=== PATIENT | male | born 1990 | race Caucasian/White ===

== ENCOUNTER 2016-07-31 19:00 | Emergency (ER) | payer OTHER ==
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
[2016-07-31 20:14] LABS: Hematocrit 44 % (42-52); Hemoglobin 14.6 g/dl (14.0-18.0); Mean Corpuscular HGB Conc 34 g/dl (31-36); Mean Corpuscular Hemoglobin 31 pg (27-31); Mean Corpuscular Volume 91 fL (80-94); Mean Platelet Volume 10 um3 (7.4-10.4); Red Cell Distribution Width 13 % (10.5-15); White Blood Count 16.5 10^3/ul (3.5-10.8)
[2016-07-31 20:29] LABS: ALT 12 U/L (7-52); AST 15 U/L (13-39); Albumin 4.7 g/dL (3.2-5.2); Alkaline Phosphatase 57 U/L (34-104); Anion Gap 5 mmol/L (2-11); BUN/Creatinine Ratio 13.1 (8-20); Blood Urea Nitrogen 11 mg/dL (6-24); CO2 Carbon Dioxide 30 mmol/L (22-32); Calcium 9.6 mg/dL (8.6-10.3); Chloride 102 mmol/L (101-111); EGFR African American 139.9 (>60); EGFR Non-African American 108.8 (>60); Globulin 2.8 g/dL (2-4); Glucose 123 mg/dL (70-100); Potassium 3.7 mmol/L (3.5-5.0); Sodium 137 mmol/L (133-145); Total Protein 7.5 g/dL (6.4-8.9)
[2016-07-31 20:31] LABS: Urine Bilirubin Negative (Negative); Urine Glucose Negative (Negative); Urine Nitrite Negative (Negative)
[2016-07-31 20:45] LABS: Benzodiazepine Urine Screen None Detected (None Detect)
[2016-07-31 20:45] LABS: Acetaminophen < 15 mcg/mL; Salicylate < 2.50 mg/dL (<30)
[2016-07-31 20:54] LABS: TSH (Thyroid Stimulating Horm) 1.42 mcIU/mL (0.34-5.60)
[2016-07-31 22:05] VITALS: BP 127/65
== END 2016-08-01 01:04 | disposition home or self-care (01) ==
LOC: ED 19:00
DX: F19.10 Other psychoactive substance abuse, uncomplicated (principal); F17.210 Nicotine dependence, cigarettes, uncomplicated
CPT/HCPCS: 36415; 80053; 80307; 80329; 81003; 84443; 85027; 99284; G0480

== ENCOUNTER → 2018-02-23 12:23 | Emergency (ER) | payer MEDICAID, OTHER ==
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
[2018-02-23 14:58] VITALS: BP 116/62
== END | disposition home or self-care (01) ==
LOC: ED 12:23
DX: T40.1X1A Poisoning by heroin, accidental (unintentional), initial encounter (principal); Y92.9 Unspecified place or not applicable; Z88.3 Allergy status to other anti-infective agents; F17.210 Nicotine dependence, cigarettes, uncomplicated

== ENCOUNTER 2022-11-04 00:27 | Inpatient (IN) ==
[2022-11-04 01:37] LABS: Hematocrit 36.7 % (38-53); Hemoglobin 12.6 g/dL (13.2-16.3); Mean Corpuscular Hemoglobin 29.6 pg (27-33); Mean Corpuscular Hgb Conc 34.3 g/dL (31-36); Mean Corpuscular Volume 86.2 fL (80-97); Mean Platelet Volume 8.5 fL (7.5-11.2); Platelet Count 636 10^3/uL (150-450); Red Blood Count 4.26 10^6/uL (4.06-5.63); Red Cell Distribution Width 14.4 % (12-17); White Blood Count 33.8 10^3/uL (3.6-10.2)
[2022-11-04 02:25] LABS: Albumin 3.5 g/dL (3.2-5.2); C Reactive Protein 312.36 mg/L (<8.01); Calcium 9.2 mg/dL (8.6-10.3); Creatinine, Serum 0.54 mg/dL (0.67-1.17); Globulin 3.4 g/dL (2-4); Potassium 4.5 mmol/L (3.5-5.0); Total Bilirubin 1.4 mg/dL (0.2-1.0); Total Protein 6.9 g/dL (6.4-8.9); eGFR CKD-EPI 134.1 (>60)
[2022-11-04 02:28] LABS: HIV 4th Generation Nonreactive (Nonreactive)
[2022-11-04 02:41] LABS: Microcytosis 2+; RBC Morphology Normal (Normal)
[2022-11-04 02:43] LABS: Dohle Bodies Present
[2022-11-04 02:45] LABS: ABS Basophils 0.1 10^3/uL (0.0-0.1); ABS Lymphocytes 0.5 10^3/uL (1.0-4.8); ABS Monocytes 3.1 10^3/uL (0.0-1.1); ABS Neutrophils 30.1 10^3/uL (1.5-7.6); ABS Nucleated RBC 0.02 10^3/ul; Erythrocyte Sed Rate 58 mm/Hr (0-14); Lymphocyte % 1.6 %; Nucleated Red Blood Cells % 0.1 /100 WBC (0.0-0.4)
[2022-11-04] MEDS ORDERED: Morphine 4 MG/ML VIAL (1 ml) IV ONE (03:21)
[2022-11-04] MEDS ORDERED: Piperacillin/Tazobac ADVAN 3.375 GM in NS 0.9% 100 ml BAG 100 ML IV ONE (03:21)
[2022-11-04] MEDS ORDERED: Vancomycin 1,500 MG in NS 0.9% 250 ml 250 ML IVPB ONE (03:21)
[2022-11-04] MEDS ORDERED: Piperacillin/Tazobac 3.375 GM BAG ONE (03:33)
[2022-11-04] MEDS ORDERED: Ondansetron 4 mg VIAL 2 MG/ML 2 ml VIAL IV ONE (04:04)
[2022-11-04 04:14] LABS: Body Fluid Appearance Cloudy; Body Fluid Color Yellow; Body Fluid Source Synovial Fluid
[2022-11-04 04:54] LABS: Body Fluid WBC 53476 /mcL
[2022-11-04] MEDS ORDERED: Vancomycin per Pharmacy 1 EA NOTE FOLLOW UP SCH (05:00)
[2022-11-04 05:36] LABS: Body Fluid Mono 2 %; Body Fluid Total Cells Counted 200
[2022-11-04 05:38] LABS: Direct Bilirubin 0.5 mg/dL (0.03-0.18)
[2022-11-04] MEDS ORDERED: Zosyn per Pharmacy NOTE FOLLOW UP SCH (06:00)
[2022-11-04] MEDS ORDERED: Lactated Ringers 1000 ml BAG 1,000 ML IV SCH (06:00)
[2022-11-04 07:13] LABS: Hematocrit 36.6 % (38-53); Hemoglobin 12.2 g/dL (13.2-16.3); Mean Corpuscular Hemoglobin 29.4 pg (27-33); Mean Corpuscular Hgb Conc 33.4 g/dL (31-36); Mean Corpuscular Volume 88.1 fL (80-97); Mean Platelet Volume 8.5 fL (7.5-11.2); Platelet Count 617 10^3/uL (150-450); Red Blood Count 4.15 10^6/uL (4.06-5.63); Red Cell Distribution Width 13.7 % (12-17); White Blood Count 33.4 10^3/uL (3.6-10.2)
[2022-11-04 07:22] LABS: INR 1.7 (0.88-1.18)
[2022-11-04 07:43] LABS: ABS Basophils 0.1 10^3/uL (0.0-0.1); ABS Lymphocytes 1.3 10^3/uL (1.0-4.8); Lymphocyte % 3.8 %
[2022-11-04 07:55] LABS: Albumin 2.9 g/dL (3.2-5.2); Albumin/Globulin Ratio 0.9 (1-3); Calcium 8.7 mg/dL (8.6-10.3); Creatinine, Serum 0.62 mg/dL (0.67-1.17); Globulin 3.2 g/dL (2-4); Magnesium 2.1 mg/dL (1.9-2.7); Potassium 4.7 mmol/L (3.5-5.0); Total Bilirubin 1.5 mg/dL (0.2-1.0); Total Protein 6.1 g/dL (6.4-8.9); eGFR CKD-EPI 128.6 (>60)
[2022-11-04] MEDS ORDERED: ZOSYN 3.375 GM Q8H per EXTENDED INFUSION IV SCH (08:00)
[2022-11-04] MEDS ORDERED: Cefepime 2 GM in Dextrose 2 GM/50 ML BAG IV SCH (09:00)
[2022-11-04] MEDS ORDERED: Acetaminophen IV 1 GM/100ML 1,000 MG/100 ML BAG IV PRN (11:00)
[2022-11-04] MEDS ORDERED: Vancomycin 1,250 MG in NS 0.9% 250 ml 250 ML IVPB SCH (14:00)
[2022-11-04] MEDS ORDERED: Senna TAB 8.6 mg TAB PO PRN (14:05)
[2022-11-04] MEDS ORDERED: Magnesium Hydroxide LIQ 30 ML UDC PO PRN (14:05)
[2022-11-04] MEDS ORDERED: Bupivacaine 0.5% 50 ML MDV VIAL ONE (14:47)
[2022-11-04] MEDS ORDERED: Lidocaine 2% PF 5 ML VIAL ONE (15:02)
[2022-11-04] MEDS ORDERED: Propofol 10 MG/ML 20 ML BTL ONE ×2 (15:02→15:05)
[2022-11-04] MEDS ORDERED: Midazolam 5 mg/5 ml VIAL 1 mg/ml 5 ml VIAL (5 mg) ONE (15:04)
[2022-11-04] MEDS ORDERED: Ketamine HCL 50 mg/ml 10 ml VIAL (500 MG) ONE (15:42)
[2022-11-04] MEDS ORDERED: fentaNYL 100 mcg/2 ml 50 MCG/ML VIAL ONE (16:02)
[2022-11-04 16:52] LABS: Hepatitis B Surface Antigen Nonreactive (Nonreactive)
[2022-11-04 16:57] LABS: Hepatitis A Ab IgM Negative (Negative); Hepatitis B Core IgM Nonreactive (Nonreactive)
[2022-11-04] MEDS ORDERED: HYDROmorphone 1 MG/1 ML SYRINGE IV PRN (16:57)
[2022-11-04] MEDS ORDERED: Naloxone 0.4 mg VIAL 0.4 mg/ml 1 ml VIAL IV PRN (16:57)
[2022-11-04] MEDS ORDERED: Ondansetron 4 mg VIAL 2 MG/ML 2 ml VIAL IV PRN (16:57)
[2022-11-04] MEDS ORDERED: fentaNYL 100 mcg/2 ml 50 MCG/ML VIAL IV PRN (16:57)
[2022-11-04 18:36] LABS: Hepatitis C Antibody Reactive (Negative)
[2022-11-04] MEDS: Nicotine GUM 4MG FRUIT FLAVOR PO PRN (22:15)
[2022-11-04] MEDS: Vancomycin 1,250 MG in NS 0.9% 250 ml 250 ML IVPB SCH ×2 (22:19)
[2022-11-05] MEDS: Vancomycin 1,250 MG in NS 0.9% 250 ml 250 ML IVPB SCH ×2 (05:11→14:27)
[2022-11-05 05:24] LABS: Hematocrit 35.3 % (38-53); Mean Corpuscular Hemoglobin 29.2 pg (27-33); Mean Corpuscular Hgb Conc 33.9 g/dL (31-36); Mean Corpuscular Volume 86.3 fL (80-97); Mean Platelet Volume 8.9 fL (7.5-11.2); Platelet Count 608 10^3/uL (150-450); Red Blood Count 4.09 10^6/uL (4.06-5.63); Red Cell Distribution Width 14.3 % (12-17); White Blood Count 38.6 10^3/uL (3.6-10.2)
[2022-11-05] MEDS ORDERED: Vancomycin Trough Check NOTE FOLLOW UP ONE (05:30)
[2022-11-05 05:59] LABS: Microcytosis 2+
[2022-11-05 06:01] LABS: ABS Basophils 0.1 10^3/uL (0.0-0.1); ABS Lymphocytes 0.5 10^3/uL (1.0-4.8); ABS Monocytes 2.1 10^3/uL (0.0-1.1); ABS Neutrophils 35.8 10^3/uL (1.5-7.6); Lymphocyte % 1.3 %
[2022-11-05 06:07] LABS: Albumin 2.8 g/dL (3.2-5.2); Albumin/Globulin Ratio 0.9 (1-3); C Reactive Protein 267.62 mg/L (<8.01); Calcium 8.5 mg/dL (8.6-10.3); Creatinine, Serum 0.6 mg/dL (0.67-1.17); Globulin 3.1 g/dL (2-4); Potassium 4.7 mmol/L (3.5-5.0); Total Bilirubin 0.9 mg/dL (0.2-1.0); Total Protein 5.9 g/dL (6.4-8.9); Vancomycin Trough 8.3 mcg/mL; eGFR CKD-EPI 129.9 (>60)
[2022-11-05] MEDS: Morphine 2 MG/ML SYRINGE IV PRN ×3 (10:10→20:21)
[2022-11-05] MEDS: Nicotine GUM 4MG FRUIT FLAVOR PO PRN ×4 (10:11→20:23)
[2022-11-05] MEDS: Aspirin EC 325 mg TAB.EC PO SCH (10:11)
[2022-11-05] MEDS: Nicotine PATCH 21 MG/24 HR PATCH TRANSDERM SCH (10:11)
[2022-11-05] MEDS: Vancomycin 1000 MG in NS 0.9% 250 ML IVPB SCH ×2 (15:21→20:25)
[2022-11-06] MEDS: Morphine 2 MG/ML SYRINGE IV PRN ×4 (01:39→19:58)
[2022-11-06] MEDS: Vancomycin 1000 MG in NS 0.9% 250 ML IVPB SCH ×4 (01:45→20:02)
[2022-11-06] MEDS ORDERED: Vancomycin Trough Check NOTE FOLLOW UP ONE (08:00)
[2022-11-06 08:17] LABS: Hematocrit 35.1 % (38-53); Mean Corpuscular Hemoglobin 29.4 pg (27-33); Mean Corpuscular Hgb Conc 34.2 g/dL (31-36); Mean Corpuscular Volume 85.9 fL (80-97); Platelet Count 674 10^3/uL (150-450); Red Blood Count 4.08 10^6/uL (4.06-5.63); Red Cell Distribution Width 14.3 % (12-17); White Blood Count 37.9 10^3/uL (3.6-10.2)
[2022-11-06 08:41] LABS: ABS Basophils 0.1 10^3/uL (0.0-0.1); ABS Lymphocytes 2.2 10^3/uL (1.0-4.8); ABS Monocytes 3.4 10^3/uL (0.0-1.1); ABS Neutrophils 32.2 10^3/uL (1.5-7.6); ABS Nucleated RBC 0.01 10^3/ul; Lymphocyte % 5.8 %; RBC Morphology Normal (Normal)
[2022-11-06 08:56] LABS: Albumin 2.6 g/dL (3.2-5.2); Albumin/Globulin Ratio 0.8 (1-3); Calcium 7.9 mg/dL (8.6-10.3); Creatinine, Serum 0.52 mg/dL (0.67-1.17); Globulin 3.1 g/dL (2-4); Potassium 4.6 mmol/L (3.5-5.0); Total Bilirubin 0.8 mg/dL (0.2-1.0); Total Protein 5.7 g/dL (6.4-8.9); eGFR CKD-EPI 135.6 (>60)
[2022-11-06] MEDS: Nicotine PATCH 21 MG/24 HR PATCH TRANSDERM SCH (09:37)
[2022-11-06] MEDS: Aspirin EC 325 mg TAB.EC PO SCH (09:37)
[2022-11-06] MEDS: Nicotine GUM 4MG FRUIT FLAVOR PO PRN ×2 (09:37→14:14)
[2022-11-06 17:02] LABS: Urine Osmo < 100 mOsm/kg (150-1150)
[2022-11-07] MEDS: Morphine 2 MG/ML SYRINGE IV PRN ×2 (02:43→06:53)
[2022-11-07] MEDS: Vancomycin 1000 MG in NS 0.9% 250 ML IVPB SCH ×2 (02:47→09:23)
[2022-11-07] MEDS: Nicotine GUM 4MG FRUIT FLAVOR PO PRN ×4 (06:59→23:59)
[2022-11-07] MEDS ORDERED: Vancomycin Trough Check NOTE FOLLOW UP ONE (08:00)
[2022-11-07 08:09] LABS: Hematocrit 34.7 % (38-53); Hemoglobin 11.9 g/dL (13.2-16.3); Mean Corpuscular Hgb Conc 34.2 g/dL (31-36); Mean Corpuscular Volume 87.7 fL (80-97); Mean Platelet Volume 8.4 fL (7.5-11.2); Platelet Count 690 10^3/uL (150-450); Red Blood Count 3.95 10^6/uL (4.06-5.63); Red Cell Distribution Width 14.2 % (12-17); White Blood Count 38.4 10^3/uL (3.6-10.2)
[2022-11-07 08:53] LABS: Albumin 2.6 g/dL (3.2-5.2); Albumin/Globulin Ratio 0.8 (1-3); Calcium 8.1 mg/dL (8.6-10.3); Creatinine, Serum 0.44 mg/dL (0.67-1.17); Globulin 3.3 g/dL (2-4); Potassium 4.6 mmol/L (3.5-5.0); Total Bilirubin 0.8 mg/dL (0.2-1.0); Total Protein 5.9 g/dL (6.4-8.9); eGFR CKD-EPI 142.7 (>60)
[2022-11-07] MEDS: Nicotine PATCH 21 MG/24 HR PATCH TRANSDERM SCH (09:20)
[2022-11-07] MEDS: Aspirin EC 325 mg TAB.EC PO SCH (09:20)
[2022-11-07] MEDS: Vancomycin 1,500 MG in NS 0.9% 250 ml 250 ML IVPB SCH ×2 (15:20→23:02)
[2022-11-07] MEDS: Senna TAB 8.6 mg TAB PO SCH (19:36)
[2022-11-08] MEDS ORDERED: Vancomycin Trough Check NOTE FOLLOW UP ONE (06:00)
[2022-11-08 06:47] LABS: Hematocrit 33.9 % (38-53); Hemoglobin 11.4 g/dL (13.2-16.3); Mean Corpuscular Hemoglobin 29.7 pg (27-33); Mean Corpuscular Hgb Conc 33.7 g/dL (31-36); Mean Corpuscular Volume 88.2 fL (80-97); Red Blood Count 3.84 10^6/uL (4.06-5.63); Red Cell Distribution Width 14.5 % (12-17); White Blood Count 36.6 10^3/uL (3.6-10.2)
[2022-11-08 06:48] LABS: Platelet Count 767 10^3/uL (150-450)
[2022-11-08] MEDS ORDERED: NS 0.9% 1000 ml BAG 1,000 ML IV ONE (07:00)
[2022-11-08 07:03] LABS: Albumin 2.8 g/dL (3.2-5.2); Albumin/Globulin Ratio 0.9 (1-3); Calcium 8.1 mg/dL (8.6-10.3); Creatinine, Serum 0.63 mg/dL (0.67-1.17); Globulin 3.2 g/dL (2-4); Potassium 4.5 mmol/L (3.5-5.0); Total Bilirubin 0.9 mg/dL (0.2-1.0); Vancomycin Trough 9.1 mcg/mL
[2022-11-08] MEDS: Vancomycin 1,500 MG in NS 0.9% 250 ml 250 ML IVPB SCH ×3 (07:22→23:07)
[2022-11-08] MEDS: Aspirin EC 325 mg TAB.EC PO SCH (08:38)
[2022-11-08] MEDS: Nicotine PATCH 21 MG/24 HR PATCH TRANSDERM SCH (08:40)
[2022-11-08] MEDS: Polyethylene Glycol 3350 17 GM PACKET PO SCH (08:42)
[2022-11-08] MEDS ORDERED: Lactated Ringers 1000 ml BAG 1,000 ML IV SCH (09:00)
[2022-11-08] MEDS ORDERED: fentaNYL 100 mcg/2 ml 50 MCG/ML VIAL ONE (12:33)
[2022-11-08] MEDS ORDERED: Midazolam 5 mg/5 ml VIAL 1 mg/ml 5 ml VIAL (5 mg) ONE (12:33)
[2022-11-08] MEDS ORDERED: Flumazenil 0.5 mg/5 ml 0.1 MG/ML 5 ml VIAL ONE (12:34)
[2022-11-08] MEDS ORDERED: Naloxone 0.4 mg VIAL 0.4 mg/ml 1 ml VIAL ONE (12:34)
[2022-11-08] MEDS ORDERED: Midazolam 10 mg/10 ml VIAL 1 mg/ml 10 ml VIAL (10 mg) IV SLOW PU ONE (13:47)
[2022-11-08] MEDS ORDERED: fentaNYL 100 mcg/2 ml 50 MCG/ML VIAL IV SLOW PU ONE (13:47)
[2022-11-08 17:31] LABS: C Reactive Protein 164.51 mg/L (<8.01)
[2022-11-08] MEDS: Senna TAB 8.6 mg TAB PO SCH (20:19)
[2022-11-08] MEDS: Nicotine GUM 4MG FRUIT FLAVOR PO PRN (23:06)
[2022-11-09] MEDS ORDERED: Vancomycin Trough Check NOTE FOLLOW UP ONE (06:00)
[2022-11-09 06:20] LABS: Hemoglobin 10.5 g/dL (13.2-16.3); Mean Corpuscular Hemoglobin 29.1 pg (27-33); Mean Corpuscular Hgb Conc 33.9 g/dL (31-36); Mean Corpuscular Volume 85.8 fL (80-97); Mean Platelet Volume 8.2 fL (7.5-11.2); Platelet Count 783 10^3/uL (150-450); Red Blood Count 3.61 10^6/uL (4.06-5.63); Red Cell Distribution Width 14.5 % (12-17); White Blood Count 39.2 10^3/uL (3.6-10.2)
[2022-11-09 06:58] LABS: Albumin 2.5 g/dL (3.2-5.2); Albumin/Globulin Ratio 0.8 (1-3); C Reactive Protein 150.5 mg/L (<8.01); Calcium 7.9 mg/dL (8.6-10.3); Creatinine, Serum 0.46 mg/dL (0.67-1.17); Globulin 3.2 g/dL (2-4); Magnesium 1.8 mg/dL (1.9-2.7); Potassium 4.8 mmol/L (3.5-5.0); Total Bilirubin 0.7 mg/dL (0.2-1.0); Total Protein 5.7 g/dL (6.4-8.9); Vancomycin Trough 8.6 mcg/mL; eGFR CKD-EPI 140.8 (>60)
[2022-11-09] MEDS ORDERED: Magnesium Sulfate 2 gm BAG 2 GM/50 ML BAG IVPB ONE (07:20)
[2022-11-09] MEDS: Aspirin EC 325 mg TAB.EC PO SCH (08:42)
[2022-11-09] MEDS: Polyethylene Glycol 3350 17 GM PACKET PO SCH (08:43)
[2022-11-09] MEDS: Nicotine GUM 4MG FRUIT FLAVOR PO PRN (08:43)
[2022-11-09] MEDS: Nicotine PATCH 21 MG/24 HR PATCH TRANSDERM SCH (08:45)
[2022-11-09] MEDS: Vancomycin 1,500 MG in NS 0.9% 250 ml 250 ML IVPB SCH ×3 (10:20→22:08)
[2022-11-09 13:41] LABS: Urine Osmo 321 mOsm/kg (150-1150)
[2022-11-09 13:51] LABS: Osmolality Serum 266 mOsm/kg (275-295)
[2022-11-09] MEDS: Senna TAB 8.6 mg TAB PO SCH (20:06)
[2022-11-10 06:10] LABS: Hematocrit 32.7 % (38-53); Hemoglobin 11.1 g/dL (13.2-16.3); Mean Corpuscular Hemoglobin 29.7 pg (27-33); Mean Corpuscular Hgb Conc 33.8 g/dL (31-36); Mean Corpuscular Volume 87.7 fL (80-97); Mean Platelet Volume 8.4 fL (7.5-11.2); Platelet Count 890 10^3/uL (150-450); Red Blood Count 3.73 10^6/uL (4.06-5.63); Red Cell Distribution Width 14.2 % (12-17); White Blood Count 38.6 10^3/uL (3.6-10.2)
[2022-11-10] MEDS: Vancomycin 1,500 MG in NS 0.9% 250 ml 250 ML IVPB SCH ×3 (06:15→22:43)
[2022-11-10 06:31] LABS: Albumin 2.7 g/dL (3.2-5.2); Albumin/Globulin Ratio 0.7 (1-3); C Reactive Protein 157.34 mg/L (<8.01); Calcium 8.3 mg/dL (8.6-10.3); Creatinine, Serum 0.51 mg/dL (0.67-1.17); Globulin 3.7 g/dL (2-4); Potassium 5.5 mmol/L (3.5-5.0); Total Bilirubin 0.8 mg/dL (0.2-1.0); Total Protein 6.4 g/dL (6.4-8.9); eGFR CKD-EPI 136.4 (>60)
[2022-11-10] MEDS: Polyethylene Glycol 3350 17 GM PACKET PO SCH (07:54)
[2022-11-10] MEDS: Nicotine PATCH 21 MG/24 HR PATCH TRANSDERM SCH (08:04)
[2022-11-10] MEDS ORDERED: Morphine 4 MG/ML VIAL (1 ml) IV ONE (09:54)
[2022-11-10] MEDS ORDERED: NS 0.9% 250 ml 250 ML IV SCH (10:00)
[2022-11-10] MEDS ORDERED: NS 0.9% 1000 ml BAG 1,000 ML IV SCH ×2 (10:00→15:16)
[2022-11-10] MEDS ORDERED: Bupivacaine 0.25% SDV 30 ML ONE (14:58)
[2022-11-10] MEDS ORDERED: Lidocaine 2% PF 5 ML VIAL ONE (15:01)
[2022-11-10] MEDS ORDERED: Midazolam 2 mg/2 ml VIAL 1 mg/ml 2 ml VIAL (2 mg) ONE (15:01)
[2022-11-10] MEDS ORDERED: Propofol 10 MG/ML 20 ML BTL ONE ×2 (15:01→17:18)
[2022-11-10] MEDS ORDERED: fentaNYL 250 mcg/5 ml 50 MCG/ML 5 ml VIAL (250 MCG) ONE (15:01)
[2022-11-10 15:08] LABS: Calcium 8.1 mg/dL (8.6-10.3); Creatinine, Serum 0.39 mg/dL (0.67-1.17); Potassium 5.2 mmol/L (3.5-5.0)
[2022-11-10] MEDS ORDERED: Naloxone 0.4 mg VIAL 0.4 mg/ml 1 ml VIAL IV PRN (16:49)
[2022-11-10] MEDS ORDERED: HYDROmorphone 0.5 MG/0.5 ML SYRINGE ONE ×3 (17:16→17:32)
[2022-11-10] MEDS ORDERED: fentaNYL 100 mcg/2 ml 50 MCG/ML VIAL ONE ×3 (17:24→18:24)
[2022-11-10] MEDS ORDERED: Acetaminophen IV 1 GM/100ML 1,000 MG/100 ML BAG IV ONE (17:27)
[2022-11-10] MEDS ORDERED: HYDROmorphone 1 MG/1 ML SYRINGE ONE (18:24)
[2022-11-10] MEDS: HYDROmorphone 1 MG/1 ML SYRINGE IV PRN ×2 (18:26→18:36)
[2022-11-10] MEDS: fentaNYL 100 mcg/2 ml 50 MCG/ML VIAL IV PRN ×2 (18:26→18:33)
[2022-11-10] MEDS: Senna TAB 8.6 mg TAB PO SCH (20:35)
[2022-11-11] MEDS ORDERED: Vancomycin Trough Check NOTE FOLLOW UP ONE (06:00)
[2022-11-11 06:09] LABS: Hematocrit 31.8 % (38-53); Hemoglobin 10.6 g/dL (13.2-16.3); Mean Corpuscular Hgb Conc 33.4 g/dL (31-36); Mean Corpuscular Volume 86.8 fL (80-97); Mean Platelet Volume 8.2 fL (7.5-11.2); Platelet Count 884 10^3/uL (150-450); Red Blood Count 3.66 10^6/uL (4.06-5.63); Red Cell Distribution Width 14.4 % (12-17); White Blood Count 43.7 10^3/uL (3.6-10.2)
[2022-11-11 06:29] LABS: Albumin 2.6 g/dL (3.2-5.2); Albumin/Globulin Ratio 0.7 (1-3); Calcium 8.1 mg/dL (8.6-10.3); Creatinine, Serum 0.44 mg/dL (0.67-1.17); Globulin 3.5 g/dL (2-4); Magnesium 1.9 mg/dL (1.9-2.7); Potassium 5.3 mmol/L (3.5-5.0); Total Bilirubin 0.6 mg/dL (0.2-1.0); Total Protein 6.1 g/dL (6.4-8.9); Vancomycin Trough 10.2 mcg/mL; eGFR CKD-EPI 142.7 (>60)
[2022-11-11] MEDS: Vancomycin 1,500 MG in NS 0.9% 250 ml 250 ML IVPB SCH ×3 (06:29→22:01)
[2022-11-11] MEDS: Nicotine PATCH 21 MG/24 HR PATCH TRANSDERM SCH (08:52)
[2022-11-11] MEDS: Polyethylene Glycol 3350 17 GM PACKET PO SCH (08:52)
[2022-11-11] MEDS: oxyCODONE SR 20 mg TAB PO SCH ×2 (10:59→22:00)
[2022-11-11] MEDS: Nicotine GUM 4MG FRUIT FLAVOR PO PRN (20:00)
[2022-11-11] MEDS: Senna TAB 8.6 mg TAB PO SCH (22:00)
[2022-11-12] MEDS: Vancomycin 1,500 MG in NS 0.9% 250 ml 250 ML IVPB SCH ×3 (06:25→22:27)
[2022-11-12] MEDS: Polyethylene Glycol 3350 17 GM PACKET PO SCH (08:39)
[2022-11-12] MEDS: Nicotine GUM 4MG FRUIT FLAVOR PO PRN ×3 (08:39→20:31)
[2022-11-12] MEDS: oxyCODONE SR 20 mg TAB PO SCH ×2 (08:41→20:30)
[2022-11-12] MEDS: Nicotine PATCH 21 MG/24 HR PATCH TRANSDERM SCH (08:42)
[2022-11-12 11:36] LABS: Hemoglobin 10.7 g/dL (13.2-16.3); Mean Corpuscular Hemoglobin 29.1 pg (27-33); Mean Corpuscular Hgb Conc 33.5 g/dL (31-36); Mean Corpuscular Volume 86.7 fL (80-97); Mean Platelet Volume 7.7 fL (7.5-11.2); Platelet Count 1040 10^3/uL (150-450); Red Cell Distribution Width 14.3 % (12-17); White Blood Count 33.4 10^3/uL (3.6-10.2)
[2022-11-12 12:05] LABS: Albumin 2.7 g/dL (3.2-5.2); Albumin/Globulin Ratio 0.8 (1-3); C Reactive Protein 82.6 mg/L (<8.01); Calcium 8.6 mg/dL (8.6-10.3); Creatinine, Serum 0.47 mg/dL (0.67-1.17); Globulin 3.6 g/dL (2-4); Magnesium 1.7 mg/dL (1.9-2.7); Potassium 5.1 mmol/L (3.5-5.0); Total Bilirubin 0.6 mg/dL (0.2-1.0); Total Protein 6.3 g/dL (6.4-8.9); eGFR CKD-EPI 139.8 (>60)
[2022-11-12] MEDS ORDERED: Magnesium Sulfate 2 gm BAG 2 GM/50 ML BAG IVPB ONE (12:42)
[2022-11-12] MEDS: Senna TAB 8.6 mg TAB PO SCH (20:31)
[2022-11-13] MEDS: Nicotine GUM 4MG FRUIT FLAVOR PO PRN ×2 (05:05→21:27)
[2022-11-13] MEDS ORDERED: Vancomycin Trough Check NOTE FOLLOW UP ONE (06:00)
[2022-11-13 07:39] LABS: Hematocrit 31.9 % (38-53); Hemoglobin 10.6 g/dL (13.2-16.3); Mean Corpuscular Hemoglobin 29.1 pg (27-33); Mean Corpuscular Hgb Conc 33.2 g/dL (31-36); Mean Corpuscular Volume 87.6 fL (80-97); Platelet Count 1094 10^3/uL (150-450); Red Blood Count 3.64 10^6/uL (4.06-5.63); Red Cell Distribution Width 14.2 % (12-17)
[2022-11-13 07:50] LABS: Albumin 2.8 g/dL (3.2-5.2); Albumin/Globulin Ratio 0.8 (1-3); C Reactive Protein 82.7 mg/L (<8.01); Calcium 8.4 mg/dL (8.6-10.3); Creatinine, Serum 0.52 mg/dL (0.67-1.17); Globulin 3.7 g/dL (2-4); Magnesium 1.9 mg/dL (1.9-2.7); Potassium 5.3 mmol/L (3.5-5.0); Total Bilirubin 0.7 mg/dL (0.2-1.0); Total Protein 6.5 g/dL (6.4-8.9); Vancomycin Trough 9.3 mcg/mL; eGFR CKD-EPI 135.6 (>60)
[2022-11-13] MEDS: Vancomycin 1,500 MG in NS 0.9% 250 ml 250 ML IVPB SCH ×3 (08:04→21:27)
[2022-11-13] MEDS: oxyCODONE SR 20 mg TAB PO SCH (08:07)
[2022-11-13] MEDS: Nicotine PATCH 21 MG/24 HR PATCH TRANSDERM SCH (08:08)
[2022-11-13] MEDS: Polyethylene Glycol 3350 17 GM PACKET PO SCH (08:08)
[2022-11-13] MEDS ORDERED: Magnesium Sulfate IV 1GM/100ML 1 GM/100 ML BAG IV ONE (08:15)
[2022-11-13] MEDS ORDERED: oxyCODONE SR 10 mg TAB PO ONE (09:00)
[2022-11-13] MEDS: Senna TAB 8.6 mg TAB PO SCH (19:58)
[2022-11-13] MEDS: oxyCODONE SR 15 mg TAB PO SCH (19:59)
[2022-11-14] MEDS: Vancomycin 1,500 MG in NS 0.9% 250 ml 250 ML IVPB SCH ×3 (05:05→23:01)
[2022-11-14] MEDS: oxyCODONE SR 15 mg TAB PO SCH ×2 (07:00→19:26)
[2022-11-14] MEDS: Polyethylene Glycol 3350 17 GM PACKET PO SCH (07:00)
[2022-11-14] MEDS: Nicotine PATCH 21 MG/24 HR PATCH TRANSDERM SCH (07:01)
[2022-11-14] MEDS: Nicotine GUM 4MG FRUIT FLAVOR PO PRN ×2 (12:07→19:29)
[2022-11-14] MEDS: Senna TAB 8.6 mg TAB PO SCH (19:26)
[2022-11-15] MEDS: Vancomycin 1,500 MG in NS 0.9% 250 ml 250 ML IVPB SCH ×3 (06:06→22:52)
[2022-11-15] MEDS: oxyCODONE SR 15 mg TAB PO SCH ×2 (08:40→20:45)
[2022-11-15] MEDS: Polyethylene Glycol 3350 17 GM PACKET PO SCH (08:41)
[2022-11-15] MEDS: Nicotine PATCH 21 MG/24 HR PATCH TRANSDERM SCH (08:41)
[2022-11-15] MEDS: Nicotine GUM 4MG FRUIT FLAVOR PO PRN ×2 (10:38→19:43)
[2022-11-15] MEDS ORDERED: Naloxone Nasal Spray 4 MG/0.1 ML NASAL.SPR INTRANASAL PRN (15:39)
[2022-11-15] MEDS ORDERED: Enoxaparin 40 MG/0.4 ML SYR SUBCUT SCH (16:00)
[2022-11-15] MEDS ORDERED: Lidocaine 1% MPF 5 ML VIAL INJ ONE (16:10)
[2022-11-15] MEDS: Senna TAB 8.6 mg TAB PO SCH (20:45)
[2022-11-15] MEDS: Enoxaparin 40 MG/0.4 ML SYR SUBCUT SCH (20:46)
[2022-11-16] MEDS: Nicotine GUM 4MG FRUIT FLAVOR PO PRN ×6 (03:24→22:31)
[2022-11-16 06:21] LABS: Hematocrit 28.8 % (38-53); Hemoglobin 9.6 g/dL (13.2-16.3); Mean Corpuscular Hemoglobin 29.5 pg (27-33); Mean Corpuscular Hgb Conc 33.3 g/dL (31-36); Mean Corpuscular Volume 88.7 fL (80-97); Platelet Count 1075 10^3/uL (150-450); Red Blood Count 3.25 10^6/uL (4.06-5.63); Red Cell Distribution Width 14.3 % (12-17); White Blood Count 27.5 10^3/uL (3.6-10.2)
[2022-11-16] MEDS: Vancomycin 1,500 MG in NS 0.9% 250 ml 250 ML IVPB SCH ×3 (06:36→22:23)
[2022-11-16 06:50] LABS: Albumin 2.9 g/dL (3.2-5.2); Albumin/Globulin Ratio 0.8 (1-3); C Reactive Protein 101.74 mg/L (<8.01); Calcium 8.8 mg/dL (8.6-10.3); Creatinine, Serum 0.65 mg/dL (0.67-1.17); Globulin 3.5 g/dL (2-4); Magnesium 1.8 mg/dL (1.9-2.7); Potassium 4.7 mmol/L (3.5-5.0); Total Bilirubin 0.7 mg/dL (0.2-1.0); Total Protein 6.4 g/dL (6.4-8.9); eGFR CKD-EPI 126.8 (>60)
[2022-11-16] MEDS ORDERED: Magnesium Sulfate 2 gm BAG 2 GM/50 ML BAG IVPB ONE (07:13)
[2022-11-16] MEDS: Nicotine PATCH 21 MG/24 HR PATCH TRANSDERM SCH (09:02)
[2022-11-16] MEDS: Polyethylene Glycol 3350 17 GM PACKET PO SCH (09:23)
[2022-11-16] MEDS: Morphine ER 30 mg TAB ** extended release PO SCH ×2 (10:48→21:40)
[2022-11-16] MEDS: Morphine ER 15 mg TAB ** extended release PO SCH ×2 (10:49→21:41)
[2022-11-16] MEDS: Senna TAB 8.6 mg TAB PO SCH (21:41)
[2022-11-16] MEDS: Enoxaparin 40 MG/0.4 ML SYR SUBCUT SCH (21:48)
[2022-11-17] MEDS ORDERED: Vancomycin Trough Check NOTE FOLLOW UP ONE (06:00)
[2022-11-17] MEDS: Vancomycin 1,500 MG in NS 0.9% 250 ml 250 ML IVPB SCH (06:11)
[2022-11-17 08:23] LABS: Hematocrit 27.9 % (38-53); Hemoglobin 9.5 g/dL (13.2-16.3); Mean Corpuscular Hemoglobin 30.1 pg (27-33); Mean Corpuscular Hgb Conc 34.1 g/dL (31-36); Mean Corpuscular Volume 88.3 fL (80-97); Mean Platelet Volume 7.1 fL (7.5-11.2); Platelet Count 1030 10^3/uL (150-450); Red Blood Count 3.16 10^6/uL (4.06-5.63); Red Cell Distribution Width 14.6 % (12-17); White Blood Count 25.5 10^3/uL (3.6-10.2)
[2022-11-17] MEDS: Morphine ER 15 mg TAB ** extended release PO SCH (08:40)
[2022-11-17] MEDS: Morphine ER 30 mg TAB ** extended release PO SCH (08:41)
[2022-11-17] MEDS: Nicotine GUM 4MG FRUIT FLAVOR PO PRN ×4 (08:43→17:41)
[2022-11-17 08:46] LABS: Albumin 2.8 g/dL (3.2-5.2); Albumin/Globulin Ratio 0.8 (1-3); C Reactive Protein 127.34 mg/L (<8.01); Calcium 8.6 mg/dL (8.6-10.3); Creatinine, Serum 0.53 mg/dL (0.67-1.17); Globulin 3.6 g/dL (2-4); Magnesium 1.8 mg/dL (1.9-2.7); Potassium 4.5 mmol/L (3.5-5.0); Total Bilirubin 1.1 mg/dL (0.2-1.0); Total Protein 6.4 g/dL (6.4-8.9); Vancomycin Trough 29.9 mcg/mL; eGFR CKD-EPI 134.9 (>60)
[2022-11-17] MEDS: Nicotine PATCH 21 MG/24 HR PATCH TRANSDERM SCH (09:03)
[2022-11-17] MEDS: Polyethylene Glycol 3350 17 GM PACKET PO SCH (09:03)
[2022-11-17] MEDS ORDERED: Magnesium Sulfate 2 gm BAG 2 GM/50 ML BAG IVPB ONE (09:07)
[2022-11-17] MEDS ORDERED: Iohexol 350 (CONTRAST) 500 ML MDV IV ONE (10:52)
[2022-11-17] MEDS ORDERED: Linezolid 600 MG IVPREMIX(*) 600 MG/300 ML BAG IVPB SCH ×2 (11:00→15:00)
[2022-11-17] MEDS ORDERED: Naloxone 0.4 mg VIAL 0.4 mg/ml 1 ml VIAL IV PUSH PRN (14:51)
[2022-11-17] MEDS ORDERED: HYDROmorphone 1 MG/1 ML SYRINGE IV SLOW PU STA (14:59)
[2022-11-17] MEDS ORDERED: HYDROmorphone PCA 20 MG/20 ML PCA.SYRING PCA SCH (16:00)
[2022-11-17] MEDS ORDERED: Lidocaine 1% MPF 5 ML VIAL INJ ONE (16:02)
[2022-11-17] MEDS ORDERED: Famotidine IV 10 MG/ML 2 ml VIAL (20 mg) IV ONE (19:51)
[2022-11-17] MEDS ORDERED: Morphine 4 MG/ML VIAL (1 ml) ONE (21:04)
[2022-11-17] MEDS ORDERED: Midazolam 5 mg/5 ml VIAL 1 mg/ml 5 ml VIAL (5 mg) ONE (21:17)
[2022-11-17] MEDS ORDERED: Ketamine HCL 50 mg/ml 10 ml VIAL (500 MG) ONE (21:17)
[2022-11-17] MEDS ORDERED: fentaNYL 250 mcg/5 ml 50 MCG/ML 5 ml VIAL (250 MCG) ONE (21:17)
[2022-11-17] MEDS ORDERED: Lidocaine 2% PF 5 ML VIAL ONE (21:17)
[2022-11-17] MEDS ORDERED: Ondansetron 4 mg VIAL 2 MG/ML 2 ml VIAL ONE (21:17)
[2022-11-17] MEDS ORDERED: Propofol 10 MG/ML 20 ML BTL ONE (21:17)
[2022-11-17] MEDS: Lactated Ringers 1000 ml BAG 1,000 ML IV SCH (21:21)
[2022-11-17] MEDS ORDERED: Rocuronium 50 mg VIAL 10 mg/ml 5 ml VIAL (50 mg) ONE (21:23)
[2022-11-17] MEDS ORDERED: fentaNYL 100 mcg/2 ml 50 MCG/ML VIAL IV PRN (23:01)
[2022-11-17] MEDS ORDERED: Ondansetron 4 mg VIAL 2 MG/ML 2 ml VIAL IV PRN (23:01)
[2022-11-17] MEDS ORDERED: Naloxone 0.4 mg VIAL 0.4 mg/ml 1 ml VIAL IV PRN (23:01)
[2022-11-17] MEDS ORDERED: HYDROmorphone 1 MG/1 ML SYRINGE IV PRN (23:01)
[2022-11-17] MEDS ORDERED: ceFAZolin 1 GM in Dextrose 1 GM/50 ML BAG ONE (23:07)
[2022-11-18] MEDS ORDERED: HYDROmorphone 0.5 MG/0.5 ML SYRINGE ONE ×2 (00:17→00:23)
[2022-11-18] MEDS: Lactated Ringers 1000 ml BAG 1,000 ML IV SCH (01:57)
[2022-11-18] MEDS: Senna TAB 8.6 mg TAB PO SCH ×2 (03:11→22:41)
[2022-11-18] MEDS: Linezolid 600 MG IVPREMIX(*) 600 MG/300 ML BAG IVPB SCH ×2 (03:21→14:27)
[2022-11-18 07:28] LABS: Hematocrit 21.6 % (38-53); Hemoglobin 7.3 g/dL (13.2-16.3); Mean Corpuscular Hemoglobin 29.7 pg (27-33); Mean Corpuscular Hgb Conc 33.8 g/dL (31-36); Mean Corpuscular Volume 87.9 fL (80-97); Mean Platelet Volume 7.4 fL (7.5-11.2); Platelet Count 778 10^3/uL (150-450); Red Blood Count 2.46 10^6/uL (4.06-5.63); Red Cell Distribution Width 14.3 % (12-17); White Blood Count 32.4 10^3/uL (3.6-10.2)
[2022-11-18] MEDS: Nicotine PATCH 21 MG/24 HR PATCH TRANSDERM SCH (08:18)
[2022-11-18] MEDS: Nicotine GUM 4MG FRUIT FLAVOR PO PRN ×2 (08:19→13:54)
[2022-11-18] MEDS: Polyethylene Glycol 3350 17 GM PACKET PO SCH (08:19)
[2022-11-18] MEDS ORDERED: HYDROmorphone PCA 20 MG/20 ML PCA.SYRING PCA SCH (08:31)
[2022-11-18 08:48] LABS: C Reactive Protein 126.52 mg/L (<8.01); Calcium 8.3 mg/dL (8.6-10.3); Creatinine, Serum 0.52 mg/dL (0.67-1.17); Magnesium 1.8 mg/dL (1.9-2.7); Potassium 4.7 mmol/L (3.5-5.0); eGFR CKD-EPI 135.6 (>60)
[2022-11-18] MEDS: Enoxaparin 40 MG/0.4 ML SYR SUBCUT SCH (12:45)
[2022-11-18] MEDS: HYDROmorphone PCA 20 MG/20 ML PCA.SYRING PCA SCH (12:51)
[2022-11-19] MEDS: HYDROmorphone PCA 20 MG/20 ML PCA.SYRING PCA SCH ×2 (00:07→11:43)
[2022-11-19] MEDS: Linezolid 600 MG IVPREMIX(*) 600 MG/300 ML BAG IVPB SCH ×2 (02:20→15:02)
[2022-11-19 05:53] LABS: Hematocrit 19.4 % (38-53); Hemoglobin 6.4 g/dL (13.2-16.3); Mean Corpuscular Hemoglobin 29.4 pg (27-33); Mean Corpuscular Hgb Conc 33.2 g/dL (31-36); Mean Corpuscular Volume 88.6 fL (80-97); Mean Platelet Volume 7.4 fL (7.5-11.2); Platelet Count 759 10^3/uL (150-450); Red Blood Count 2.19 10^6/uL (4.06-5.63); Red Cell Distribution Width 14.2 % (12-17); White Blood Count 20.4 10^3/uL (3.6-10.2)
[2022-11-19 06:02] LABS: Albumin 2.5 g/dL (3.2-5.2); Albumin/Globulin Ratio 0.7 (1-3); C Reactive Protein 126.25 mg/L (<8.01); Creatinine, Serum 0.46 mg/dL (0.67-1.17); Globulin 3.5 g/dL (2-4); Magnesium 1.8 mg/dL (1.9-2.7); Potassium 3.8 mmol/L (3.5-5.0); Total Bilirubin 0.4 mg/dL (0.2-1.0); eGFR CKD-EPI 140.8 (>60)
[2022-11-19 06:29] LABS: Hematocrit 19.4 % (38-53); Hemoglobin 6.5 g/dL (13.2-16.3)
[2022-11-19] MEDS: Nicotine PATCH 21 MG/24 HR PATCH TRANSDERM SCH (09:00)
[2022-11-19] MEDS: Polyethylene Glycol 3350 17 GM PACKET PO SCH (09:31)
[2022-11-19] MEDS: Nicotine GUM 4MG FRUIT FLAVOR PO PRN (09:32)
[2022-11-19] MEDS: Morphine ER 100 mg TAB **extended release PO SCH ×2 (13:49→22:52)
[2022-11-19] MEDS: Enoxaparin 40 MG/0.4 ML SYR SUBCUT SCH (13:51)
[2022-11-19] MEDS: Morphine ORAL.SOLN 10 mg 2 mg/ml UDC 5 ml (10 mg) PO PRN (18:09)
[2022-11-19 20:40] LABS: Hematocrit 22.7 % (38-53); Hemoglobin 7.6 g/dL (13.2-16.3); Mean Corpuscular Hemoglobin 29.7 pg (27-33); Mean Corpuscular Hgb Conc 33.3 g/dL (31-36); Mean Platelet Volume 7.4 fL (7.5-11.2); Platelet Count 734 10^3/uL (150-450); Red Blood Count 2.55 10^6/uL (4.06-5.63); Red Cell Distribution Width 13.8 % (12-17); White Blood Count 25.3 10^3/uL (3.6-10.2)
[2022-11-19] MEDS: Senna TAB 8.6 mg TAB PO SCH (21:16)
[2022-11-20] MEDS: Morphine ORAL.SOLN 10 mg 2 mg/ml UDC 5 ml (10 mg) PO PRN ×3 (01:37→14:52)
[2022-11-20] MEDS: Linezolid 600 MG IVPREMIX(*) 600 MG/300 ML BAG IVPB SCH ×3 (01:38→21:26)
[2022-11-20 06:09] LABS: Hematocrit 22.3 % (38-53); Hemoglobin 7.6 g/dL (13.2-16.3); Mean Corpuscular Hemoglobin 30.2 pg (27-33); Mean Corpuscular Hgb Conc 34.1 g/dL (31-36); Mean Corpuscular Volume 88.4 fL (80-97); Mean Platelet Volume 7.7 fL (7.5-11.2); Platelet Count 723 10^3/uL (150-450); Red Blood Count 2.52 10^6/uL (4.06-5.63); Red Cell Distribution Width 14.1 % (12-17); White Blood Count 23.9 10^3/uL (3.6-10.2)
[2022-11-20 06:28] LABS: Albumin 2.7 g/dL (3.2-5.2); Albumin/Globulin Ratio 0.7 (1-3); C Reactive Protein 95.93 mg/L (<8.01); Calcium 8.3 mg/dL (8.6-10.3); Creatinine, Serum 0.45 mg/dL (0.67-1.17); Globulin 3.7 g/dL (2-4); Magnesium 1.9 mg/dL (1.9-2.7); Potassium 3.9 mmol/L (3.5-5.0); Total Bilirubin 0.4 mg/dL (0.2-1.0); Total Protein 6.4 g/dL (6.4-8.9); eGFR CKD-EPI 141.7 (>60)
[2022-11-20] MEDS: Polyethylene Glycol 3350 17 GM PACKET PO SCH (09:34)
[2022-11-20] MEDS: Nicotine PATCH 21 MG/24 HR PATCH TRANSDERM SCH (09:36)
[2022-11-20] MEDS: Morphine ER 100 mg TAB **extended release PO SCH ×2 (09:36→21:19)
[2022-11-20] MEDS: Nicotine GUM 4MG FRUIT FLAVOR PO PRN ×3 (09:41→19:40)
[2022-11-20] MEDS: Enoxaparin 40 MG/0.4 ML SYR SUBCUT SCH (12:51)
[2022-11-20] MEDS: Senna TAB 8.6 mg TAB PO SCH (21:18)
[2022-11-21] MEDS: Morphine ORAL.SOLN 10 mg 2 mg/ml UDC 5 ml (10 mg) PO PRN ×5 (01:34→22:13)
[2022-11-21 05:59] LABS: Hematocrit 23.4 % (38-53); Hemoglobin 7.9 g/dL (13.2-16.3); Mean Corpuscular Hemoglobin 29.9 pg (27-33); Mean Corpuscular Hgb Conc 33.6 g/dL (31-36); Mean Corpuscular Volume 89.1 fL (80-97); Mean Platelet Volume 7.6 fL (7.5-11.2); Platelet Count 805 10^3/uL (150-450); Red Blood Count 2.63 10^6/uL (4.06-5.63); Red Cell Distribution Width 14.6 % (12-17); White Blood Count 24.7 10^3/uL (3.6-10.2)
[2022-11-21 06:19] LABS: Albumin 2.8 g/dL (3.2-5.2); Albumin/Globulin Ratio 0.7 (1-3); C Reactive Protein 77.09 mg/L (<8.01); Calcium 8.3 mg/dL (8.6-10.3); Creatinine, Serum 0.46 mg/dL (0.67-1.17); Globulin 3.9 g/dL (2-4); Magnesium 1.7 mg/dL (1.9-2.7); Potassium 4.3 mmol/L (3.5-5.0); Total Bilirubin 0.5 mg/dL (0.2-1.0); Total Protein 6.7 g/dL (6.4-8.9); eGFR CKD-EPI 140.8 (>60)
[2022-11-21] MEDS: Nicotine PATCH 21 MG/24 HR PATCH TRANSDERM SCH (08:12)
[2022-11-21] MEDS: Morphine ER 100 mg TAB **extended release PO SCH ×2 (08:13→20:24)
[2022-11-21] MEDS: Polyethylene Glycol 3350 17 GM PACKET PO SCH (08:13)
[2022-11-21] MEDS: Linezolid 600 MG IVPREMIX(*) 600 MG/300 ML BAG IVPB SCH ×2 (09:42→22:15)
[2022-11-21] MEDS: Enoxaparin 40 MG/0.4 ML SYR SUBCUT SCH (12:18)
[2022-11-21] MEDS: Nicotine GUM 4MG FRUIT FLAVOR PO PRN ×2 (15:50→20:25)
[2022-11-21] MEDS: Senna TAB 8.6 mg TAB PO SCH (20:25)
[2022-11-22 06:16] LABS: Hematocrit 23.9 % (38-53); Mean Corpuscular Hemoglobin 29.2 pg (27-33); Mean Corpuscular Hgb Conc 33.3 g/dL (31-36); Mean Corpuscular Volume 87.8 fL (80-97); Mean Platelet Volume 7.7 fL (7.5-11.2); Platelet Count 837 10^3/uL (150-450); Red Blood Count 2.73 10^6/uL (4.06-5.63); Red Cell Distribution Width 14.5 % (12-17); White Blood Count 23.9 10^3/uL (3.6-10.2)
[2022-11-22] MEDS: Nicotine GUM 4MG FRUIT FLAVOR PO PRN ×3 (06:20→16:41)
[2022-11-22 06:37] LABS: Albumin 2.8 g/dL (3.2-5.2); Albumin/Globulin Ratio 0.7 (1-3); Calcium 8.6 mg/dL (8.6-10.3); Creatinine, Serum 0.48 mg/dL (0.67-1.17); Globulin 4.2 g/dL (2-4); Magnesium 1.9 mg/dL (1.9-2.7); Total Bilirubin 0.6 mg/dL (0.2-1.0)
[2022-11-22 07:50] LABS: C Reactive Protein 80.27 mg/L (<8.01)
[2022-11-22] MEDS: Morphine ER 100 mg TAB **extended release PO SCH ×2 (09:40→22:03)
[2022-11-22] MEDS: Linezolid 600 MG IVPREMIX(*) 600 MG/300 ML BAG IVPB SCH ×2 (09:40→22:21)
[2022-11-22] MEDS: Polyethylene Glycol 3350 17 GM PACKET PO SCH (09:40)
[2022-11-22] MEDS: Nicotine PATCH 21 MG/24 HR PATCH TRANSDERM SCH (09:40)
[2022-11-22 09:42] LABS: ABS Basophils 0.1 10^3/uL (0.0-0.1); ABS Eosinophils 0.2 10^3/uL (0.0-0.5); ABS Lymphocytes 3.1 10^3/uL (1.0-4.8); ABS Neutrophils 18.5 10^3/uL (1.5-7.6); ABS Nucleated RBC 0.05 10^3/ul; Eosinophil % 0.9 %; Nucleated Red Blood Cells % 0.2 /100 WBC (0.0-0.4)
[2022-11-22] MEDS: Enoxaparin 40 MG/0.4 ML SYR SUBCUT SCH (12:30)
[2022-11-22] MEDS: Morphine ORAL.SOLN 10 mg 2 mg/ml UDC 5 ml (10 mg) PO PRN (19:54)
[2022-11-22] MEDS: Senna TAB 8.6 mg TAB PO SCH (22:04)
[2022-11-23] MEDS: Morphine ORAL.SOLN 10 mg 2 mg/ml UDC 5 ml (10 mg) PO PRN ×2 (00:30→14:18)
[2022-11-23 05:50] LABS: Mean Corpuscular Hemoglobin 29.8 pg (27-33); Mean Corpuscular Hgb Conc 33.5 g/dL (31-36); Mean Corpuscular Volume 89.2 fL (80-97); Mean Platelet Volume 7.7 fL (7.5-11.2); Platelet Count 896 10^3/uL (150-450); Red Cell Distribution Width 14.6 % (12-17)
[2022-11-23 06:36] LABS: Albumin 2.9 g/dL (3.2-5.2); Albumin/Globulin Ratio 0.7 (1-3); C Reactive Protein 75.48 mg/L (<8.01); Calcium 8.6 mg/dL (8.6-10.3); Creatinine, Serum 0.51 mg/dL (0.67-1.17); Globulin 3.9 g/dL (2-4); Magnesium 1.9 mg/dL (1.9-2.7); Potassium 4.2 mmol/L (3.5-5.0); Total Bilirubin 0.5 mg/dL (0.2-1.0); Total Protein 6.8 g/dL (6.4-8.9); eGFR CKD-EPI 136.4 (>60)
[2022-11-23 09:00] LABS: ABS Basophils 0.1 10^3/uL (0.0-0.1); ABS Eosinophils 0.2 10^3/uL (0.0-0.5); ABS Neutrophils 17.7 10^3/uL (1.5-7.6); ABS Nucleated RBC 0.04 10^3/ul; Eosinophil % 0.9 %; Lymphocyte % 13.1 %; Nucleated Red Blood Cells % 0.2 /100 WBC (0.0-0.4); Polychromasia 2+
[2022-11-23] MEDS: Nicotine PATCH 21 MG/24 HR PATCH TRANSDERM SCH (09:29)
[2022-11-23] MEDS: Linezolid 600 MG IVPREMIX(*) 600 MG/300 ML BAG IVPB SCH (09:29)
[2022-11-23] MEDS: Polyethylene Glycol 3350 17 GM PACKET PO SCH (09:30)
[2022-11-23] MEDS: Morphine ER 100 mg TAB **extended release PO SCH (09:31)
[2022-11-23] MEDS: Enoxaparin 40 MG/0.4 ML SYR SUBCUT SCH ×2 (11:26→11:29)
[2022-11-23 23:04] VITALS: BP 126/45
== END 2022-11-23 13:22 | disposition swing bed (61) | DRG 710 ==
LOC: EDHOLD 00:27 → ED 00:27 → SUATTDRO 04:59 → MED 12:44 → SUATTDRO 15:04 → SSU 11-18 01:39
PROVIDERS: ADMIT Hospitalist; ATTEND Internal Medicine

== ENCOUNTER 2022-11-23 13:13 | Inpatient (IN) ==
[2022-11-23] MEDS ORDERED: Naloxone 0.4 mg VIAL 0.4 mg/ml 1 ml VIAL IV PUSH PRN (13:53)
[2022-11-23] MEDS ORDERED: Naloxone Nasal Spray 4 MG/0.1 ML NASAL.SPR INTRANASAL PRN (13:53)
[2022-11-23] MEDS ORDERED: Magnesium Hydroxide LIQ 30 ML UDC PO PRN (13:53)
[2022-11-23] MEDS ORDERED: Morphine ORAL.SOLN 10 mg 2 mg/ml UDC 5 ml (10 mg) PO PRN ×2 (14:50→14:51)
[2022-11-23] MEDS ORDERED: Morphine ORAL.SOLN 10 mg 2 mg/ml UDC 5 ml (10 mg) PO SCH (16:00)
[2022-11-23] MEDS: Enoxaparin 40 MG/0.4 ML SYR SUBCUT SCH (17:02)
[2022-11-23] MEDS: Morphine 2 MG/ML SYRINGE IV PRN ×4 (17:21→22:46)
[2022-11-23] MEDS: Senna TAB 8.6 mg TAB PO SCH (20:41)
[2022-11-23] MEDS ORDERED: Morphine ER 100 mg TAB **extended release PO SCH (21:00)
[2022-11-23] MEDS: Linezolid 600 MG IVPREMIX(*) 600 MG/300 ML BAG IVPB SCH (21:51)
[2022-11-23] MEDS: Nicotine GUM 4MG FRUIT FLAVOR PO PRN (22:48)
[2022-11-24] MEDS: Morphine 2 MG/ML SYRINGE IV PRN ×7 (05:03→22:24)
[2022-11-24] MEDS: Nicotine PATCH 21 MG/24 HR PATCH TRANSDERM SCH (07:57)
[2022-11-24] MEDS: Nicotine GUM 4MG FRUIT FLAVOR PO PRN ×3 (08:04→19:46)
[2022-11-24] MEDS ORDERED: Morphine ER 100 mg TAB **extended release PO SCH (09:00)
[2022-11-24] MEDS: Polyethylene Glycol 3350 17 GM PACKET PO SCH (09:57)
[2022-11-24] MEDS: Linezolid 600 MG IVPREMIX(*) 600 MG/300 ML BAG IVPB SCH ×2 (10:11→22:35)
[2022-11-24] MEDS: Enoxaparin 40 MG/0.4 ML SYR SUBCUT SCH (14:33)
[2022-11-24] MEDS ORDERED: Lidocaine 1% MPF 5 ML VIAL INJ ONE (14:43)
[2022-11-24] MEDS: Morphine ORAL.SOLN 10 mg 2 mg/ml UDC 5 ml (10 mg) PO SCH ×3 (15:35→23:06)
[2022-11-24] MEDS: Senna TAB 8.6 mg TAB PO SCH (19:45)
[2022-11-24] MEDS: Nystatin TOP POWDER 15 GM BTL TOPICAL SCH (19:54)
[2022-11-25] MEDS: Morphine 2 MG/ML SYRINGE IV PRN ×9 (01:55→23:40)
[2022-11-25] MEDS: Morphine ORAL.SOLN 10 mg 2 mg/ml UDC 5 ml (10 mg) PO SCH ×6 (03:20→23:47)
[2022-11-25] MEDS: Nicotine GUM 4MG FRUIT FLAVOR PO PRN ×4 (03:23→21:09)
[2022-11-25] MEDS: Nicotine PATCH 21 MG/24 HR PATCH TRANSDERM SCH (08:43)
[2022-11-25] MEDS: Linezolid 600 MG IVPREMIX(*) 600 MG/300 ML BAG IVPB SCH ×2 (10:35→21:40)
[2022-11-25] MEDS: Nystatin TOP POWDER 15 GM BTL TOPICAL SCH ×2 (11:41→21:15)
[2022-11-25] MEDS: Polyethylene Glycol 3350 17 GM PACKET PO SCH (11:41)
[2022-11-25] MEDS: Enoxaparin 40 MG/0.4 ML SYR SUBCUT SCH (16:27)
[2022-11-25] MEDS: Senna TAB 8.6 mg TAB PO SCH (21:07)
[2022-11-26] MEDS: Morphine 2 MG/ML SYRINGE IV PRN ×4 (01:32→07:57)
[2022-11-26] MEDS: Morphine ORAL.SOLN 10 mg 2 mg/ml UDC 5 ml (10 mg) PO SCH ×2 (03:32→07:56)
[2022-11-26] MEDS: Polyethylene Glycol 3350 17 GM PACKET PO SCH (07:50)
[2022-11-26] MEDS: Nicotine PATCH 21 MG/24 HR PATCH TRANSDERM SCH (08:04)
[2022-11-26] MEDS: Nystatin TOP POWDER 15 GM BTL TOPICAL SCH ×2 (08:04→23:08)
[2022-11-26] MEDS: Nicotine GUM 4MG FRUIT FLAVOR PO PRN ×2 (08:05→10:32)
[2022-11-26] MEDS: Linezolid 600 MG IVPREMIX(*) 600 MG/300 ML BAG IVPB SCH ×2 (10:37→23:16)
[2022-11-26] MEDS: Morphine 10 MG/ML VIAL (1 ml) IV PRN ×4 (12:03→21:00)
[2022-11-26] MEDS: Enoxaparin 40 MG/0.4 ML SYR SUBCUT SCH (14:05)
[2022-11-26] MEDS: Morphine ORAL.SOLN 10 mg 2 mg/ml UDC 5 ml (10 mg) PO PRN (20:32)
[2022-11-26] MEDS: Senna TAB 8.6 mg TAB PO SCH (20:34)
[2022-11-27] MEDS: Morphine 10 MG/ML VIAL (1 ml) IV PRN ×7 (00:17→20:17)
[2022-11-27] MEDS: Morphine ORAL.SOLN 10 mg 2 mg/ml UDC 5 ml (10 mg) PO PRN ×5 (02:10→23:41)
[2022-11-27] MEDS: Nicotine GUM 4MG FRUIT FLAVOR PO PRN ×4 (04:31→22:48)
[2022-11-27] MEDS: Polyethylene Glycol 3350 17 GM PACKET PO SCH (09:41)
[2022-11-27] MEDS: Nystatin TOP POWDER 15 GM BTL TOPICAL SCH ×2 (09:41→21:31)
[2022-11-27] MEDS: Linezolid 600 MG IVPREMIX(*) 600 MG/300 ML BAG IVPB SCH ×2 (09:54→21:24)
[2022-11-27] MEDS: Nicotine PATCH 21 MG/24 HR PATCH TRANSDERM SCH (10:36)
[2022-11-27] MEDS: Enoxaparin 40 MG/0.4 ML SYR SUBCUT SCH (17:53)
[2022-11-27] MEDS: Senna TAB 8.6 mg TAB PO SCH (21:23)
[2022-11-28] MEDS: Morphine 10 MG/ML VIAL (1 ml) IV PRN ×6 (01:43→23:31)
[2022-11-28] MEDS: Morphine ORAL.SOLN 10 mg 2 mg/ml UDC 5 ml (10 mg) PO PRN ×4 (05:23→22:41)
[2022-11-28] MEDS: Nicotine PATCH 21 MG/24 HR PATCH TRANSDERM SCH (07:54)
[2022-11-28] MEDS: Polyethylene Glycol 3350 17 GM PACKET PO SCH (07:55)
[2022-11-28] MEDS: Nystatin TOP POWDER 15 GM BTL TOPICAL SCH ×2 (08:19→22:41)
[2022-11-28] MEDS: Linezolid 600 MG IVPREMIX(*) 600 MG/300 ML BAG IVPB SCH ×2 (11:37→22:44)
[2022-11-28] MEDS: Enoxaparin 40 MG/0.4 ML SYR SUBCUT SCH (13:12)
[2022-11-28] MEDS: Nicotine GUM 4MG FRUIT FLAVOR PO PRN ×2 (13:54→23:33)
[2022-11-28] MEDS: Senna TAB 8.6 mg TAB PO SCH (22:41)
[2022-11-29] MEDS: Nicotine GUM 4MG FRUIT FLAVOR PO PRN ×3 (02:22→12:24)
[2022-11-29] MEDS: Morphine 10 MG/ML VIAL (1 ml) IV PRN ×3 (03:07→10:39)
[2022-11-29] MEDS: Morphine ORAL.SOLN 10 mg 2 mg/ml UDC 5 ml (10 mg) PO PRN ×3 (09:14→19:59)
[2022-11-29] MEDS: Nystatin TOP POWDER 15 GM BTL TOPICAL SCH ×2 (09:15→22:59)
[2022-11-29] MEDS: Polyethylene Glycol 3350 17 GM PACKET PO SCH (09:15)
[2022-11-29] MEDS: Nicotine PATCH 21 MG/24 HR PATCH TRANSDERM SCH (09:15)
[2022-11-29] MEDS: Linezolid 600 MG IVPREMIX(*) 600 MG/300 ML BAG IVPB SCH ×2 (09:25→22:47)
[2022-11-29 10:04] LABS: Erythrocyte Sed Rate 67 mm/Hr (0-14)
[2022-11-29 10:16] LABS: Creatinine, Serum 0.51 mg/dL (0.67-1.17); Potassium 5.4 mmol/L (3.5-5.0); eGFR CKD-EPI 136.4 (>60)
[2022-11-29 12:21] LABS: Hematocrit 24.8 % (38-53); Mean Corpuscular Hemoglobin 28.7 pg (27-33); Mean Corpuscular Hgb Conc 32.4 g/dL (31-36); Mean Corpuscular Volume 88.4 fL (80-97); Mean Platelet Volume 8.3 fL (7.5-11.2); Platelet Count 1234 10^3/uL (150-450); Red Blood Count 2.81 10^6/uL (4.06-5.63); Red Cell Distribution Width 15.4 % (12-17); White Blood Count 20.2 10^3/uL (3.6-10.2)
[2022-11-29 12:48] LABS: Anisocytosis 1+; Polychromasia 2+
[2022-11-29 12:51] LABS: Howell Jolly Bodies Present; Target Cells 1+
[2022-11-29 12:53] LABS: ABS Eosinophils 0.6 10^3/ul (0.0-0.5); ABS Lymphocytes 6.1 10^3/ul (1.0-4.8); ABS Neutrophils 11.5 10^3/ul (1.5-7.6)
[2022-11-29 12:54] LABS: ABS Basophils 0.2 10^3/uL (0.0-0.1); ABS Eosinophils 0.3 10^3/uL (0.0-0.5); ABS Lymphocytes 4.2 10^3/uL (1.0-4.8); ABS Monocytes 2.2 10^3/uL (0.0-1.1); ABS Neutrophils 13.3 10^3/uL (1.5-7.6); ABS Nucleated RBC 0.08 10^3/ul; Eosinophil % 1.6 %; Lymphocyte % 20.7 %; Nucleated Red Blood Cells % 0.4 /100 WBC (0.0-0.4)
[2022-11-29] MEDS: Senna TAB 8.6 mg TAB PO SCH (23:00)
[2022-11-30] MEDS: Nicotine GUM 4MG FRUIT FLAVOR PO PRN ×6 (00:31→19:43)
[2022-11-30] MEDS: Morphine ORAL.SOLN 10 mg 2 mg/ml UDC 5 ml (10 mg) PO PRN ×5 (01:19→21:39)
[2022-11-30] MEDS: Morphine 10 MG/ML VIAL (1 ml) IV PRN ×7 (02:29→22:44)
[2022-11-30 06:35] LABS: Hematocrit 24.2 % (38-53); Hemoglobin 7.8 g/dL (13.2-16.3); Mean Corpuscular Hemoglobin 28.3 pg (27-33); Mean Corpuscular Hgb Conc 32.2 g/dL (31-36); Mean Corpuscular Volume 87.7 fL (80-97); Mean Platelet Volume 7.7 fL (7.5-11.2); Platelet Count 1228 10^3/uL (150-450); Red Blood Count 2.76 10^6/uL (4.06-5.63); Red Cell Distribution Width 15.7 % (12-17); White Blood Count 20.9 10^3/uL (3.6-10.2)
[2022-11-30 07:09] LABS: Albumin 2.8 g/dL (3.2-5.2); Albumin/Globulin Ratio 0.7 (1-3); Calcium 8.3 mg/dL (8.6-10.3); Creatinine, Serum 0.55 mg/dL (0.67-1.17); Potassium 4.9 mmol/L (3.5-5.0); Total Bilirubin 0.5 mg/dL (0.2-1.0); Total Protein 6.8 g/dL (6.4-8.9); eGFR CKD-EPI 133.4 (>60)
[2022-11-30] MEDS: Polyethylene Glycol 3350 17 GM PACKET PO SCH (07:42)
[2022-11-30] MEDS: Nystatin TOP POWDER 15 GM BTL TOPICAL SCH ×2 (07:44→19:46)
[2022-11-30] MEDS: Nicotine PATCH 21 MG/24 HR PATCH TRANSDERM SCH (09:13)
[2022-11-30] MEDS: Linezolid 600 MG IVPREMIX(*) 600 MG/300 ML BAG IVPB SCH ×2 (10:50→21:40)
[2022-11-30] MEDS ORDERED: Enoxaparin 40 MG/0.4 ML SYR SUBCUT SCH (12:00)
[2022-11-30] MEDS: Senna TAB 8.6 mg TAB PO SCH (19:43)
[2022-12-01] MEDS: Nicotine GUM 4MG FRUIT FLAVOR PO PRN ×3 (00:02→09:20)
[2022-12-01] MEDS: Morphine ORAL.SOLN 10 mg 2 mg/ml UDC 5 ml (10 mg) PO PRN ×2 (02:02→09:03)
[2022-12-01 05:14] VITALS: BP 120/68
[2022-12-01] MEDS: Morphine 10 MG/ML VIAL (1 ml) IV PRN (05:54)
[2022-12-01] MEDS: Nicotine PATCH 21 MG/24 HR PATCH TRANSDERM SCH (09:05)
[2022-12-01] MEDS: Nystatin TOP POWDER 15 GM BTL TOPICAL SCH (09:05)
[2022-12-01] MEDS: Polyethylene Glycol 3350 17 GM PACKET PO SCH (09:05)
[2022-12-01] MEDS: Linezolid 600 MG IVPREMIX(*) 600 MG/300 ML BAG IVPB SCH (09:21)
[2022-12-01] MEDS ORDERED: DAPTOmycin SDV 750 MG in NS 0.9% 50 ML 50 ML IVPB SCH (11:00)
[2022-12-01] MEDS ORDERED: NS 0.9% IVPB SCH (11:30)
[2022-12-01] MEDS ORDERED: CEFTAROLINE IVPB SCH (11:30)
== END 2022-12-01 10:36 | disposition short-term general hospital (02) | DRG 313 ==
LOC: SUATTDRO 14:35 → SSU 14:35 → MED 11-28 20:03
PROVIDERS: ADMIT Internal Medicine; ATTEND Internal Medicine

== ENCOUNTER 2022-12-02 13:37 | Inpatient (IN) ==
[2022-12-01] MEDS: Morphine 4 MG/ML VIAL (1 ml) ONE ×2 (11:38→11:46)
[2022-12-01 12:03] LABS: Hematocrit 27.4 % (38-53); Hemoglobin 8.7 g/dL (13.2-16.3); Mean Corpuscular Hemoglobin 27.9 pg (27-33); Mean Corpuscular Hgb Conc 31.7 g/dL (31-36); Mean Corpuscular Volume 87.9 fL (80-97); Mean Platelet Volume 7.8 fL (7.5-11.2); Platelet Count 1207 10^3/uL (150-450); Red Blood Count 3.12 10^6/uL (4.06-5.63); White Blood Count 20.7 10^3/uL (3.6-10.2)
[2022-12-01 12:24] LABS: C Reactive Protein 79.01 mg/L (<8.01)
[2022-12-01 12:49] LABS: ABS Basophils 0.1 10^3/uL (0.0-0.1); ABS Eosinophils 0.2 10^3/uL (0.0-0.5); ABS Lymphocytes 4.7 10^3/uL (1.0-4.8); ABS Monocytes 2.5 10^3/uL (0.0-1.1); ABS Neutrophils 13.2 10^3/uL (1.5-7.6); ABS Nucleated RBC 0.16 10^3/ul; Anisocytosis 1+; Eosinophil % 1.1 %; Hypochromasia 1+; Lymphocyte % 22.6 %; Nucleated Red Blood Cells % 0.8 /100 WBC (0.0-0.4); Polychromasia 1+
[2022-12-01] MEDS: DAPTOmycin SDV 750 MG in NS 0.9% 50 ML 50 ML IVPB SCH (13:24)
[2022-12-01] MEDS: Nicotine GUM 4MG FRUIT FLAVOR PO PRN ×3 (13:25→19:14)
[2022-12-01] MEDS: NS 0.9% IVPB SCH ×2 (14:47→23:04)
[2022-12-01] MEDS: CEFTAROLINE IVPB SCH ×2 (14:47→23:04)
[2022-12-01] MEDS: Nicotine PATCH 21 MG/24 HR PATCH TRANSDERM SCH (14:47)
[2022-12-01] MEDS: Senna TAB 8.6 mg TAB PO SCH (21:49)
[2022-12-01] MEDS: Nystatin TOP POWDER 15 GM BTL TOPICAL SCH (21:51)
[2022-12-01] MEDS: Morphine ORAL.SOLN 10 mg 2 mg/ml UDC 5 ml (10 mg) PO PRN (22:58)
[2022-12-02] MEDS: Morphine ORAL.SOLN 10 mg 2 mg/ml UDC 5 ml (10 mg) PO PRN ×5 (04:14→23:53)
[2022-12-02] MEDS: Nicotine GUM 4MG FRUIT FLAVOR PO PRN ×3 (04:25→21:14)
[2022-12-02 06:29] LABS: ABS Basophils 0.3 10^3/uL (0.0-0.1); ABS Eosinophils 0.3 10^3/uL (0.0-0.5); ABS Lymphocytes 3.8 10^3/uL (1.0-4.8); ABS Monocytes 2.3 10^3/uL (0.0-1.1); ABS Neutrophils 11.7 10^3/uL (1.5-7.6); ABS Nucleated RBC 0.15 10^3/ul; Eosinophil % 1.5 %; Hematocrit 25.9 % (38-53); Hemoglobin 8.3 g/dL (13.2-16.3); Lymphocyte % 20.6 %; Mean Corpuscular Hemoglobin 27.4 pg (27-33); Mean Corpuscular Hgb Conc 32.1 g/dL (31-36); Mean Corpuscular Volume 85.4 fL (80-97); Mean Platelet Volume 7.8 fL (7.5-11.2); Nucleated Red Blood Cells % 0.8 /100 WBC (0.0-0.4); Platelet Count 1233 10^3/uL (150-450); Red Blood Count 3.03 10^6/uL (4.06-5.63); Red Cell Distribution Width 15.8 % (12-17); White Blood Count 18.4 10^3/uL (3.6-10.2)
[2022-12-02 07:04] LABS: Calcium 8.3 mg/dL (8.6-10.3); Creatinine, Serum 0.55 mg/dL (0.67-1.17); eGFR CKD-EPI 133.4 (>60)
[2022-12-02 08:56] LABS: C Reactive Protein 89.9 mg/L (<8.01)
[2022-12-02] MEDS: Polyethylene Glycol 3350 17 GM PACKET PO SCH (09:10)
[2022-12-02] MEDS: Nicotine PATCH 21 MG/24 HR PATCH TRANSDERM SCH (09:10)
[2022-12-02] MEDS: Nystatin TOP POWDER 15 GM BTL TOPICAL SCH ×2 (09:10→20:53)
[2022-12-02] MEDS: DAPTOmycin SDV 750 MG in NS 0.9% 50 ML 50 ML IVPB SCH (10:55)
[2022-12-02] MEDS: CEFTAROLINE IVPB SCH ×2 (13:15→23:53)
[2022-12-02] MEDS: NS 0.9% IVPB SCH ×2 (13:15→23:53)
[2022-12-02] MEDS: Enoxaparin 40 MG/0.4 ML SYR SUBCUT SCH (13:16)
[~2022-12-02 13:37] MED LIST: Gadoteridol (CONTRAST) 279.3 MG/ML 10 ML IV ONE; Iohexol 350 (CONTRAST) 500 ML MDV IV ONE; Magnesium Hydroxide LIQ 30 ML UDC PO PRN; Morphine 4 MG/ML VIAL (1 ml) IV ONE; Naloxone 0.4 mg VIAL 0.4 mg/ml 1 ml VIAL IV PRN; Naloxone Nasal Spray 4 MG/0.1 ML NASAL.SPR INTRANASAL PRN
[2022-12-02] MEDS: Senna TAB 8.6 mg TAB PO SCH (21:14)
[2022-12-03] MEDS: Nicotine GUM 4MG FRUIT FLAVOR PO PRN ×6 (02:46→18:31)
[2022-12-03] MEDS: Morphine ORAL.SOLN 10 mg 2 mg/ml UDC 5 ml (10 mg) PO PRN ×5 (05:03→22:28)
[2022-12-03] MEDS: Nicotine PATCH 21 MG/24 HR PATCH TRANSDERM SCH (09:14)
[2022-12-03] MEDS: Polyethylene Glycol 3350 17 GM PACKET PO SCH (09:15)
[2022-12-03] MEDS: Nystatin TOP POWDER 15 GM BTL TOPICAL SCH ×2 (09:15→21:00)
[2022-12-03 10:12] LABS: Hematocrit 27.5 % (38-53); Hemoglobin 8.6 g/dL (13.2-16.3); Mean Corpuscular Hemoglobin 26.7 pg (27-33); Mean Corpuscular Hgb Conc 31.2 g/dL (31-36); Mean Corpuscular Volume 85.8 fL (80-97); Mean Platelet Volume 7.7 fL (7.5-11.2); Platelet Count 1139 10^3/uL (150-450); Red Blood Count 3.21 10^6/uL (4.06-5.63); Red Cell Distribution Width 16.3 % (12-17); White Blood Count 18.4 10^3/uL (3.6-10.2)
[2022-12-03] MEDS: DAPTOmycin SDV 750 MG in NS 0.9% 50 ML 50 ML IVPB SCH (10:30)
[2022-12-03] MEDS: NS 0.9% IVPB SCH ×2 (11:21→23:17)
[2022-12-03] MEDS: CEFTAROLINE IVPB SCH ×2 (11:21→23:17)
[2022-12-03] MEDS: Enoxaparin 40 MG/0.4 ML SYR SUBCUT SCH (12:44)
[2022-12-03] MEDS: Senna TAB 8.6 mg TAB PO SCH (19:41)
[2022-12-04] MEDS: Morphine ORAL.SOLN 10 mg 2 mg/ml UDC 5 ml (10 mg) PO PRN ×2 (02:35→07:56)
[2022-12-04] MEDS: Nicotine GUM 4MG FRUIT FLAVOR PO PRN ×3 (04:27→20:36)
[2022-12-04 06:42] LABS: Hematocrit 27.1 % (38-53); Hemoglobin 8.7 g/dL (13.2-16.3); Mean Corpuscular Hemoglobin 27.3 pg (27-33); Mean Corpuscular Hgb Conc 32.3 g/dL (31-36); Mean Corpuscular Volume 84.5 fL (80-97); Mean Platelet Volume 7.5 fL (7.5-11.2); Platelet Count 1206 10^3/uL (150-450); Red Cell Distribution Width 16.1 % (12-17); White Blood Count 17.3 10^3/uL (3.6-10.2)
[2022-12-04 07:06] LABS: C Reactive Protein 91.74 mg/L (<8.01); Calcium 8.8 mg/dL (8.6-10.3); Creatinine, Serum 0.55 mg/dL (0.67-1.17); Potassium 4.3 mmol/L (3.5-5.0); eGFR CKD-EPI 133.4 (>60)
[2022-12-04 07:15] LABS: ABS Basophils 0.3 10^3/uL (0.0-0.1); ABS Eosinophils 0.4 10^3/uL (0.0-0.5); ABS Lymphocytes 3.3 10^3/uL (1.0-4.8); ABS Monocytes 2.4 10^3/uL (0.0-1.1); Eosinophil % 2.3 %; Lymphocyte % 18.9 %; Nucleated Red Blood Cells % 0.6 /100 WBC (0.0-0.4); Platelet Morphology Large; Polychromasia 1+
[2022-12-04] MEDS: Nicotine PATCH 21 MG/24 HR PATCH TRANSDERM SCH (08:14)
[2022-12-04] MEDS: Polyethylene Glycol 3350 17 GM PACKET PO SCH (08:14)
[2022-12-04] MEDS: Nystatin TOP POWDER 15 GM BTL TOPICAL SCH ×2 (09:38→21:44)
[2022-12-04] MEDS ORDERED: Midazolam 2 mg/2 ml VIAL 1 mg/ml 2 ml VIAL (2 mg) ONE (09:40)
[2022-12-04] MEDS ORDERED: Lidocaine 2% PF 5 ML VIAL ONE (09:40)
[2022-12-04] MEDS ORDERED: fentaNYL 100 mcg/2 ml 50 MCG/ML VIAL ONE ×5 (09:40→14:47)
[2022-12-04] MEDS ORDERED: Propofol 10 MG/ML 20 ML BTL ONE (10:18)
[2022-12-04] MEDS ORDERED: Ondansetron 4 mg VIAL 2 MG/ML 2 ml VIAL ONE (10:19)
[2022-12-04] MEDS ORDERED: Dexamethasone IV 4 MG/ML VIAL 1 ml VIAL ONE (10:19)
[2022-12-04] MEDS ORDERED: Rocuronium 50 mg VIAL 10 mg/ml 5 ml VIAL (50 mg) ONE (10:19)
[2022-12-04] MEDS ORDERED: Bupivacaine 0.5% W/EPI SDV 10 ML VIAL INJ ONE ×2 (10:22→16:18)
[2022-12-04] MEDS ORDERED: Acetaminophen IV 1 GM/100ML 1,000 MG/100 ML BAG IV ONE (11:38)
[2022-12-04] MEDS ORDERED: fentaNYL 100 mcg/2 ml 50 MCG/ML VIAL IV PRN (12:22)
[2022-12-04] MEDS ORDERED: Naloxone 0.4 mg VIAL 0.4 mg/ml 1 ml VIAL IV PRN (12:22)
[2022-12-04] MEDS ORDERED: Dexmedetomidine 200 mcg/2 ml 2 ml VIAL (200 mcg) ONE (13:45)
[2022-12-04] MEDS ORDERED: Naloxone 0.4 mg VIAL 0.4 mg/ml 1 ml VIAL IV PUSH PRN ×2 (17:22→19:06)
[2022-12-04] MEDS ORDERED: Morphine 4 MG/ML VIAL (1 ml) ONE ×4 (17:26→19:24)
[2022-12-04] MEDS: Morphine 4 MG/ML VIAL (1 ml) IV PRN ×8 (17:35→19:43)
[2022-12-04] MEDS ORDERED: HYDROmorphone PCA 20 MG/20 ML PCA.SYRING PCA SCH (18:00)
[2022-12-04] MEDS: CEFTAROLINE IVPB SCH ×2 (18:29→21:44)
[2022-12-04] MEDS: DAPTOmycin SDV 750 MG in NS 0.9% 50 ML 50 ML IVPB SCH (18:29)
[2022-12-04] MEDS: NS 0.9% IVPB SCH ×2 (18:29→21:44)
[2022-12-04] MEDS ORDERED: Morphine PCA ADULT 5 MG/ML 30 ML PCA SCH (19:15)
[2022-12-04] MEDS: Senna TAB 8.6 mg TAB PO SCH (20:35)
[2022-12-05] MEDS: Nicotine GUM 4MG FRUIT FLAVOR PO PRN ×4 (00:05→16:42)
[2022-12-05 05:34] LABS: Hematocrit 21.1 % (38-53); Hemoglobin 6.8 g/dL (13.2-16.3); Mean Corpuscular Hemoglobin 26.9 pg (27-33); Mean Corpuscular Hgb Conc 32.3 g/dL (31-36); Mean Corpuscular Volume 83.3 fL (80-97); Mean Platelet Volume 7.5 fL (7.5-11.2); Platelet Count 876 10^3/uL (150-450); Red Blood Count 2.54 10^6/uL (4.06-5.63); Red Cell Distribution Width 16.5 % (12-17); White Blood Count 21.1 10^3/uL (3.6-10.2)
[2022-12-05 05:50] LABS: Calcium 7.9 mg/dL (8.6-10.3); Creatinine, Serum 0.45 mg/dL (0.67-1.17); eGFR CKD-EPI 141.7 (>60)
[2022-12-05 06:17] LABS: ABS Basophils 0.2 10^3/uL (0.0-0.1); ABS Lymphocytes 2.9 10^3/uL (1.0-4.8); ABS Monocytes 3.2 10^3/uL (0.0-1.1); ABS Neutrophils 14.8 10^3/uL (1.5-7.6); ABS Nucleated RBC 0.04 10^3/ul; Eosinophil % 0.1 %; Lymphocyte % 13.5 %; Nucleated Red Blood Cells % 0.2 /100 WBC (0.0-0.4)
[2022-12-05] MEDS: Polyethylene Glycol 3350 17 GM PACKET PO SCH (08:34)
[2022-12-05] MEDS: Nystatin TOP POWDER 15 GM BTL TOPICAL SCH ×2 (08:34→21:24)
[2022-12-05] MEDS: Nicotine PATCH 21 MG/24 HR PATCH TRANSDERM SCH (08:34)
[2022-12-05] MEDS: NS 0.9% IVPB SCH ×2 (08:35→21:22)
[2022-12-05] MEDS: CEFTAROLINE IVPB SCH ×2 (08:35→21:22)
[2022-12-05] MEDS ORDERED: Enoxaparin 40 MG/0.4 ML SYR SUBCUT SCH (09:00)
[2022-12-05] MEDS: DAPTOmycin SDV 750 MG in NS 0.9% 50 ML 50 ML IVPB SCH (11:21)
[2022-12-05] MEDS: Morphine PCA ADULT 5 MG/ML 30 ML PCA SCH (18:25)
[2022-12-05] MEDS: Senna TAB 8.6 mg TAB PO SCH (21:24)
[2022-12-06 05:43] LABS: Hematocrit 25.9 % (38-53); Hemoglobin 8.3 g/dL (13.2-16.3); Mean Corpuscular Hemoglobin 26.8 pg (27-33); Mean Corpuscular Hgb Conc 32.2 g/dL (31-36); Mean Corpuscular Volume 83.1 fL (80-97); Mean Platelet Volume 7.5 fL (7.5-11.2); Platelet Count 943 10^3/uL (150-450); Red Blood Count 3.11 10^6/uL (4.06-5.63); Red Cell Distribution Width 17.4 % (12-17); White Blood Count 20.7 10^3/uL (3.6-10.2)
[2022-12-06 06:01] LABS: Albumin 2.8 g/dL (3.2-5.2); Albumin/Globulin Ratio 0.7 (1-3); Calcium 8.6 mg/dL (8.6-10.3); Creatinine, Serum 0.42 mg/dL (0.67-1.17); Globulin 4.3 g/dL (2-4); Potassium 4.2 mmol/L (3.5-5.0); Total Bilirubin 0.4 mg/dL (0.2-1.0); Total Protein 7.1 g/dL (6.4-8.9); eGFR CKD-EPI 144.7 (>60)
[2022-12-06 07:23] LABS: ABS Basophils 0.2 10^3/uL (0.0-0.1); ABS Eosinophils 0.1 10^3/uL (0.0-0.5); ABS Lymphocytes 3.5 10^3/uL (1.0-4.8); ABS Monocytes 3.3 10^3/uL (0.0-1.1); ABS Neutrophils 13.5 10^3/uL (1.5-7.6); ABS Nucleated RBC 0.04 10^3/ul; Eosinophil % 0.6 %; Lymphocyte % 17.1 %; Nucleated Red Blood Cells % 0.2 /100 WBC (0.0-0.4)
[2022-12-06] MEDS: Nicotine PATCH 21 MG/24 HR PATCH TRANSDERM SCH (10:18)
[2022-12-06] MEDS: Nicotine GUM 4MG FRUIT FLAVOR PO PRN ×3 (10:35→22:15)
[2022-12-06] MEDS: CEFTAROLINE IVPB SCH ×2 (10:36→20:43)
[2022-12-06] MEDS: Nystatin TOP POWDER 15 GM BTL TOPICAL SCH ×2 (10:36→20:44)
[2022-12-06] MEDS: NS 0.9% IVPB SCH ×2 (10:36→20:43)
[2022-12-06] MEDS: Polyethylene Glycol 3350 17 GM PACKET PO SCH (10:42)
[2022-12-06] MEDS: DAPTOmycin SDV 750 MG in NS 0.9% 50 ML 50 ML IVPB SCH (12:51)
[2022-12-06] MEDS: Morphine PCA ADULT 5 MG/ML 30 ML PCA SCH (15:44)
[2022-12-06] MEDS: Senna TAB 8.6 mg TAB PO SCH (20:42)
[2022-12-07] MEDS: Nicotine GUM 4MG FRUIT FLAVOR PO PRN ×5 (03:38→19:46)
[2022-12-07 06:15] LABS: Hematocrit 24.8 % (38-53); Hemoglobin 7.9 g/dL (13.2-16.3); Mean Corpuscular Hemoglobin 26.3 pg (27-33); Mean Corpuscular Hgb Conc 31.7 g/dL (31-36); Mean Platelet Volume 7.6 fL (7.5-11.2); Platelet Count 972 10^3/uL (150-450); Red Blood Count 2.99 10^6/uL (4.06-5.63); Red Cell Distribution Width 16.9 % (12-17)
[2022-12-07 06:28] LABS: Calcium 8.4 mg/dL (8.6-10.3); Creatinine, Serum 0.52 mg/dL (0.67-1.17); Potassium 4.2 mmol/L (3.5-5.0); eGFR CKD-EPI 135.6 (>60)
[2022-12-07 06:36] LABS: ABS Basophils 0.1 10^3/uL (0.0-0.1); ABS Eosinophils 0.2 10^3/uL (0.0-0.5); ABS Lymphocytes 3.1 10^3/uL (1.0-4.8); ABS Monocytes 2.5 10^3/uL (0.0-1.1); ABS Neutrophils 13.1 10^3/uL (1.5-7.6); ABS Nucleated RBC 0.03 10^3/ul; Eosinophil % 1.1 %; Lymphocyte % 16.2 %; Nucleated Red Blood Cells % 0.1 /100 WBC (0.0-0.4)
[2022-12-07] MEDS ORDERED: Morphine PCA ADULT 5 MG/ML 30 ML PCA SCH (07:36)
[2022-12-07] MEDS: CEFTAROLINE IVPB SCH ×2 (08:37→23:05)
[2022-12-07] MEDS: NS 0.9% IVPB SCH ×2 (08:37→23:05)
[2022-12-07] MEDS: Morphine PCA ADULT 5 MG/ML 30 ML PCA SCH (08:56)
[2022-12-07] MEDS: Nicotine PATCH 21 MG/24 HR PATCH TRANSDERM SCH (09:55)
[2022-12-07] MEDS: Nystatin TOP POWDER 15 GM BTL TOPICAL SCH ×2 (09:55→21:22)
[2022-12-07] MEDS: Polyethylene Glycol 3350 17 GM PACKET PO SCH (09:56)
[2022-12-07] MEDS: DAPTOmycin SDV 750 MG in NS 0.9% 50 ML 50 ML IVPB SCH (11:35)
[2022-12-07] MEDS: DULoxetine DR 30 mg CAP PO SCH (11:35)
[2022-12-07] MEDS: Senna TAB 8.6 mg TAB PO SCH (21:18)
[2022-12-08] MEDS: Nicotine GUM 4MG FRUIT FLAVOR PO PRN ×2 (01:40→08:16)
[2022-12-08 06:12] LABS: Hematocrit 23.7 % (38-53); Hemoglobin 7.6 g/dL (13.2-16.3); Mean Corpuscular Hemoglobin 26.3 pg (27-33); Mean Corpuscular Volume 82.3 fL (80-97); Platelet Count 960 10^3/uL (150-450); Red Blood Count 2.88 10^6/uL (4.06-5.63); Red Cell Distribution Width 17.2 % (12-17)
[2022-12-08 06:38] LABS: C Reactive Protein 103.97 mg/L (<8.01); Calcium 8.6 mg/dL (8.6-10.3); Creatinine, Serum 0.5 mg/dL (0.67-1.17); eGFR CKD-EPI 137.3 (>60)
[2022-12-08 07:04] LABS: Anisocytosis 1+; Hypochromasia 1+; Macrocytosis 1+; Microcytosis 1+; Polychromasia 2+; Target Cells 1+
[2022-12-08 07:05] LABS: ABS Basophils 0.1 10^3/uL (0.0-0.1); ABS Eosinophils 0.2 10^3/uL (0.0-0.5); ABS Lymphocytes 2.7 10^3/uL (1.0-4.8); ABS Monocytes 2.1 10^3/uL (0.0-1.1); ABS Neutrophils 10.8 10^3/uL (1.5-7.6); ABS Nucleated RBC 0.04 10^3/ul; Eosinophil % 1.5 %; Nucleated Red Blood Cells % 0.3 /100 WBC (0.0-0.4)
[2022-12-08] MEDS: CEFTAROLINE IVPB SCH ×2 (08:08→23:02)
[2022-12-08] MEDS: NS 0.9% IVPB SCH ×2 (08:08→23:02)
[2022-12-08] MEDS: DULoxetine DR 30 mg CAP PO SCH (08:15)
[2022-12-08] MEDS: Polyethylene Glycol 3350 17 GM PACKET PO SCH (08:18)
[2022-12-08] MEDS: Nicotine PATCH 21 MG/24 HR PATCH TRANSDERM SCH (08:18)
[2022-12-08] MEDS: Nystatin TOP POWDER 15 GM BTL TOPICAL SCH ×2 (08:20→23:06)
[2022-12-08] MEDS: Morphine PCA ADULT 5 MG/ML 30 ML PCA SCH (12:56)
[2022-12-08] MEDS: DAPTOmycin SDV 750 MG in NS 0.9% 50 ML 50 ML IVPB SCH (13:04)
[2022-12-08] MEDS ORDERED: Morphine 2 MG/ML SYRINGE IV PRN (21:20)
[2022-12-08] MEDS: Senna TAB 8.6 mg TAB PO SCH (22:58)
[2022-12-09 06:17] LABS: ABS Basophils 0.2 10^3/uL (0.0-0.1); ABS Eosinophils 0.3 10^3/uL (0.0-0.5); ABS Lymphocytes 3.1 10^3/uL (1.0-4.8); ABS Monocytes 2.1 10^3/uL (0.0-1.1); ABS Neutrophils 10.6 10^3/uL (1.5-7.6); ABS Nucleated RBC 0.07 10^3/ul; Hematocrit 24.3 % (38-53); Hemoglobin 7.5 g/dL (13.2-16.3); Mean Corpuscular Hemoglobin 25.5 pg (27-33); Mean Corpuscular Hgb Conc 30.7 g/dL (31-36); Mean Platelet Volume 8.3 fL (7.5-11.2); Nucleated Red Blood Cells % 0.4 /100 WBC (0.0-0.4); Platelet Count 922 10^3/uL (150-450); Red Blood Count 2.92 10^6/uL (4.06-5.63); Red Cell Distribution Width 17.6 % (12-17); White Blood Count 16.2 10^3/uL (3.6-10.2)
[2022-12-09 06:36] LABS: C Reactive Protein 94.96 mg/L (<8.01); Calcium 8.7 mg/dL (8.6-10.3); Creatinine, Serum 0.49 mg/dL (0.67-1.17); eGFR CKD-EPI 138.1 (>60)
[2022-12-09] MEDS: DULoxetine DR 30 mg CAP PO SCH (07:51)
[2022-12-09] MEDS: CEFTAROLINE IVPB SCH ×2 (08:00→20:58)
[2022-12-09] MEDS: NS 0.9% IVPB SCH ×2 (08:00→20:58)
[2022-12-09] MEDS: Polyethylene Glycol 3350 17 GM PACKET PO SCH (08:08)
[2022-12-09] MEDS: Nystatin TOP POWDER 15 GM BTL TOPICAL SCH ×2 (08:08→20:57)
[2022-12-09] MEDS: Nicotine PATCH 21 MG/24 HR PATCH TRANSDERM SCH (08:08)
[2022-12-09] MEDS: Nicotine GUM 4MG FRUIT FLAVOR PO PRN ×4 (10:28→20:54)
[2022-12-09] MEDS: DAPTOmycin SDV 750 MG in NS 0.9% 50 ML 50 ML IVPB SCH (11:05)
[2022-12-09] MEDS ORDERED: Iohexol 350 (CONTRAST) 500 ML MDV IV ONE (12:11)
[2022-12-09] MEDS: Morphine PCA ADULT 5 MG/ML 30 ML PCA SCH (17:18)
[2022-12-09] MEDS: Senna TAB 8.6 mg TAB PO SCH (20:56)
[2022-12-10] MEDS: Nicotine GUM 4MG FRUIT FLAVOR PO PRN ×4 (03:24→20:54)
[2022-12-10] MEDS: Cholecalciferol (VIT D3) 1,000 unit TAB PO SCH (09:21)
[2022-12-10] MEDS: DULoxetine DR 30 mg CAP PO SCH (09:21)
[2022-12-10] MEDS: Polyethylene Glycol 3350 17 GM PACKET PO SCH (09:22)
[2022-12-10] MEDS: Nicotine PATCH 21 MG/24 HR PATCH TRANSDERM SCH (09:22)
[2022-12-10] MEDS: Nystatin TOP POWDER 15 GM BTL TOPICAL SCH ×2 (09:23→20:55)
[2022-12-10] MEDS: NS 0.9% IVPB SCH ×2 (09:33→20:53)
[2022-12-10] MEDS: CEFTAROLINE IVPB SCH ×2 (09:33→20:53)
[2022-12-10] MEDS: DAPTOmycin SDV 750 MG in NS 0.9% 50 ML 50 ML IVPB SCH (11:57)
[2022-12-10] MEDS: Morphine PCA ADULT 5 MG/ML 30 ML PCA SCH (15:02)
[2022-12-10] MEDS: Senna TAB 8.6 mg TAB PO SCH (20:54)
[2022-12-10] MEDS: Morphine 2 MG/ML SYRINGE IV PRN (23:06)
[2022-12-11] MEDS: Cholecalciferol (VIT D3) 1,000 unit TAB PO SCH (07:55)
[2022-12-11] MEDS: DULoxetine DR 30 mg CAP PO SCH (07:55)
[2022-12-11] MEDS: Nicotine GUM 4MG FRUIT FLAVOR PO PRN ×5 (07:56→23:03)
[2022-12-11] MEDS: CEFTAROLINE IVPB SCH ×2 (07:56→20:03)
[2022-12-11] MEDS: NS 0.9% IVPB SCH ×2 (07:56→20:03)
[2022-12-11] MEDS: Polyethylene Glycol 3350 17 GM PACKET PO SCH (09:28)
[2022-12-11] MEDS: Nicotine PATCH 21 MG/24 HR PATCH TRANSDERM SCH (09:28)
[2022-12-11] MEDS: Nystatin TOP POWDER 15 GM BTL TOPICAL SCH ×2 (09:28→20:04)
[2022-12-11 11:01] LABS: Hemoglobin 8.8 g/dL (13.2-16.3); Mean Corpuscular Hemoglobin 25.7 pg (27-33); Mean Corpuscular Hgb Conc 31.3 g/dL (31-36); Mean Corpuscular Volume 82.2 fL (80-97); Mean Platelet Volume 7.8 fL (7.5-11.2); Platelet Count 1183 10^3/uL (150-450); Red Cell Distribution Width 17.6 % (12-17); White Blood Count 17.7 10^3/uL (3.6-10.2)
[2022-12-11] MEDS: DAPTOmycin SDV 750 MG in NS 0.9% 50 ML 50 ML IVPB SCH (11:19)
[2022-12-11 11:30] LABS: Calcium 9.4 mg/dL (8.6-10.3); Creatinine, Serum 0.54 mg/dL (0.67-1.17); Potassium 4.1 mmol/L (3.5-5.0); eGFR CKD-EPI 134.1 (>60)
[2022-12-11 11:44] LABS: Anisocytosis 2+; Hypochromasia 1+; Polychromasia 1+
[2022-12-11 11:46] LABS: ABS Neutrophils 12.9 10^3/ul (1.5-7.6)
[2022-12-11 11:47] LABS: ABS Basophils 0.4 10^3/uL (0.0-0.1); ABS Eosinophils 0.2 10^3/uL (0.0-0.5); ABS Lymphocytes 3.1 10^3/uL (1.0-4.8); ABS Lymphocytes 4.1 10^3/ul (1.0-4.8); ABS Monocytes 0.7 10^3/ul (0.0-1.1); ABS Monocytes 1.6 10^3/uL (0.0-1.1); ABS Neutrophils 12.5 10^3/uL (1.5-7.6); ABS Nucleated RBC 0.03 10^3/ul; Eosinophil % 0.9 %; Lymphocyte % 17.6 %; Nucleated Red Blood Cells % 0.2 /100 WBC (0.0-0.4)
[2022-12-11] MEDS: Senna TAB 8.6 mg TAB PO SCH (20:02)
[2022-12-11] MEDS: Morphine PCA ADULT 5 MG/ML 30 ML PCA SCH (22:31)
[2022-12-12] MEDS: Morphine 2 MG/ML SYRINGE IV PRN (06:00)
[2022-12-12] MEDS: Nicotine GUM 4MG FRUIT FLAVOR PO PRN ×7 (06:27→23:36)
[2022-12-12 06:59] LABS: ABS Basophils 0.3 10^3/uL (0.0-0.1); ABS Eosinophils 0.3 10^3/uL (0.0-0.5); ABS Monocytes 1.6 10^3/uL (0.0-1.1); ABS Neutrophils 10.5 10^3/uL (1.5-7.6); ABS Nucleated RBC 0.03 10^3/ul; Eosinophil % 1.5 %; Hemoglobin 8.2 g/dL (13.2-16.3); Lymphocyte % 24.1 %; Mean Corpuscular Hemoglobin 24.6 pg (27-33); Mean Corpuscular Hgb Conc 30.4 g/dL (31-36); Mean Corpuscular Volume 81.1 fL (80-97); Nucleated Red Blood Cells % 0.2 /100 WBC (0.0-0.4); Platelet Count 1148 10^3/uL (150-450); Red Blood Count 3.32 10^6/uL (4.06-5.63); Red Cell Distribution Width 17.6 % (12-17); White Blood Count 16.6 10^3/uL (3.6-10.2)
[2022-12-12 07:15] LABS: C Reactive Protein 83.36 mg/L (<8.01); Creatinine, Serum 0.53 mg/dL (0.67-1.17); Potassium 3.9 mmol/L (3.5-5.0); eGFR CKD-EPI 134.9 (>60)
[2022-12-12] MEDS: DULoxetine DR 30 mg CAP PO SCH (08:20)
[2022-12-12] MEDS: Nicotine PATCH 21 MG/24 HR PATCH TRANSDERM SCH (08:20)
[2022-12-12] MEDS: Cholecalciferol (VIT D3) 1,000 unit TAB PO SCH (08:20)
[2022-12-12] MEDS: Polyethylene Glycol 3350 17 GM PACKET PO SCH (08:21)
[2022-12-12] MEDS: Nystatin TOP POWDER 15 GM BTL TOPICAL SCH ×2 (08:21→20:21)
[2022-12-12] MEDS: CEFTAROLINE IVPB SCH ×2 (08:22→20:24)
[2022-12-12] MEDS: NS 0.9% IVPB SCH ×2 (08:22→20:24)
[2022-12-12] MEDS: DAPTOmycin SDV 750 MG in NS 0.9% 50 ML 50 ML IVPB SCH (10:34)
[2022-12-12] MEDS: Senna TAB 8.6 mg TAB PO SCH (20:19)
[2022-12-13] MEDS: Morphine PCA ADULT 5 MG/ML 30 ML PCA SCH (01:36)
[2022-12-13] MEDS: Nicotine GUM 4MG FRUIT FLAVOR PO PRN ×7 (01:51→23:36)
[2022-12-13] MEDS: Cholecalciferol (VIT D3) 1,000 unit TAB PO SCH (08:13)
[2022-12-13] MEDS: DULoxetine DR 30 mg CAP PO SCH (08:13)
[2022-12-13] MEDS: Nicotine PATCH 21 MG/24 HR PATCH TRANSDERM SCH (08:16)
[2022-12-13] MEDS: Nystatin TOP POWDER 15 GM BTL TOPICAL SCH ×2 (08:17→23:07)
[2022-12-13] MEDS: Polyethylene Glycol 3350 17 GM PACKET PO SCH (08:17)
[2022-12-13] MEDS: CEFTAROLINE IVPB SCH ×2 (08:21→21:13)
[2022-12-13] MEDS: NS 0.9% IVPB SCH ×2 (08:21→21:13)
[2022-12-13] MEDS: DAPTOmycin SDV 750 MG in NS 0.9% 50 ML 50 ML IVPB SCH (11:12)
[2022-12-13] MEDS: Senna TAB 8.6 mg TAB PO SCH (21:10)
[2022-12-14] MEDS: Morphine PCA ADULT 5 MG/ML 30 ML PCA SCH (05:04)
[2022-12-14] MEDS: Nicotine GUM 4MG FRUIT FLAVOR PO PRN ×6 (05:08→19:14)
[2022-12-14 05:41] LABS: Hematocrit 26.4 % (38-53); Hemoglobin 8.2 g/dL (13.2-16.3); Mean Corpuscular Hemoglobin 24.7 pg (27-33); Mean Corpuscular Volume 79.5 fL (80-97); Mean Platelet Volume 8.3 fL (7.5-11.2); Platelet Count 1186 10^3/uL (150-450); Red Blood Count 3.32 10^6/uL (4.06-5.63); Red Cell Distribution Width 18.1 % (12-17); White Blood Count 15.9 10^3/uL (3.6-10.2)
[2022-12-14] MEDS: NS 0.9% IVPB SCH ×2 (08:52→20:27)
[2022-12-14] MEDS: CEFTAROLINE IVPB SCH ×2 (08:52→20:27)
[2022-12-14] MEDS: DULoxetine DR 30 mg CAP PO SCH (08:53)
[2022-12-14] MEDS: Cholecalciferol (VIT D3) 1,000 unit TAB PO SCH (08:53)
[2022-12-14] MEDS: Polyethylene Glycol 3350 17 GM PACKET PO SCH (08:54)
[2022-12-14] MEDS: Nicotine PATCH 21 MG/24 HR PATCH TRANSDERM SCH (08:54)
[2022-12-14] MEDS: Nystatin TOP POWDER 15 GM BTL TOPICAL SCH ×2 (08:54→20:16)
[2022-12-14] MEDS: DAPTOmycin SDV 750 MG in NS 0.9% 50 ML 50 ML IVPB SCH (11:14)
[2022-12-14] MEDS: Senna TAB 8.6 mg TAB PO SCH (20:15)
[2022-12-15] MEDS: Nicotine GUM 4MG FRUIT FLAVOR PO PRN ×6 (04:46→18:28)
[2022-12-15 06:04] LABS: Hematocrit 25.3 % (38-53); Hemoglobin 7.8 g/dL (13.2-16.3); Mean Corpuscular Hemoglobin 24.4 pg (27-33); Mean Corpuscular Hgb Conc 30.6 g/dL (31-36); Mean Corpuscular Volume 79.5 fL (80-97); Mean Platelet Volume 8.1 fL (7.5-11.2); Platelet Count 1148 10^3/uL (150-450); Red Blood Count 3.18 10^6/uL (4.06-5.63)
[2022-12-15] MEDS: Morphine PCA ADULT 5 MG/ML 30 ML PCA SCH (06:14)
[2022-12-15 06:20] LABS: C Reactive Protein 85.03 mg/L (<8.01)
[2022-12-15] MEDS: Nicotine PATCH 21 MG/24 HR PATCH TRANSDERM SCH (08:42)
[2022-12-15] MEDS: Polyethylene Glycol 3350 17 GM PACKET PO SCH (08:43)
[2022-12-15] MEDS: Nystatin TOP POWDER 15 GM BTL TOPICAL SCH ×2 (08:43→20:28)
[2022-12-15] MEDS: CEFTAROLINE IVPB SCH ×2 (08:43→20:33)
[2022-12-15] MEDS: NS 0.9% IVPB SCH ×2 (08:43→20:33)
[2022-12-15] MEDS: Cholecalciferol (VIT D3) 1,000 unit TAB PO SCH (08:43)
[2022-12-15] MEDS: DULoxetine DR 30 mg CAP PO SCH (08:44)
[2022-12-15] MEDS: DAPTOmycin SDV 750 MG in NS 0.9% 50 ML 50 ML IVPB SCH (12:02)
[2022-12-15] MEDS: Senna TAB 8.6 mg TAB PO SCH (20:27)
[2022-12-16] MEDS: Nicotine GUM 4MG FRUIT FLAVOR PO PRN ×7 (02:45→20:54)
[2022-12-16 06:18] LABS: Hematocrit 24.4 % (38-53); Hemoglobin 7.6 g/dL (13.2-16.3); Mean Corpuscular Hemoglobin 24.8 pg (27-33); Mean Corpuscular Hgb Conc 31.2 g/dL (31-36); Mean Corpuscular Volume 79.4 fL (80-97); Mean Platelet Volume 8.3 fL (7.5-11.2); Platelet Count 1141 10^3/uL (150-450); Red Blood Count 3.07 10^6/uL (4.06-5.63); Red Cell Distribution Width 18.5 % (12-17); White Blood Count 15.6 10^3/uL (3.6-10.2)
[2022-12-16] MEDS: Morphine PCA ADULT 5 MG/ML 30 ML PCA SCH (08:16)
[2022-12-16] MEDS: Cholecalciferol (VIT D3) 1,000 unit TAB PO SCH (08:54)
[2022-12-16] MEDS: DULoxetine DR 30 mg CAP PO SCH (08:54)
[2022-12-16] MEDS: CEFTAROLINE IVPB SCH (08:55)
[2022-12-16] MEDS: NS 0.9% IVPB SCH (08:55)
[2022-12-16] MEDS: Nystatin TOP POWDER 15 GM BTL TOPICAL SCH ×2 (08:56→20:11)
[2022-12-16] MEDS: Nicotine PATCH 21 MG/24 HR PATCH TRANSDERM SCH (08:56)
[2022-12-16] MEDS: Polyethylene Glycol 3350 17 GM PACKET PO SCH (08:56)
[2022-12-16 11:20] LABS: Albumin 3.3 g/dL (3.2-5.2); Albumin/Globulin Ratio 0.7 (1-3); Creatinine, Serum 0.59 mg/dL (0.67-1.17); Globulin 4.9 g/dL (2-4); Potassium 4.3 mmol/L (3.5-5.0); Total Bilirubin 0.4 mg/dL (0.2-1.0); Total Protein 8.2 g/dL (6.4-8.9); eGFR CKD-EPI 130.6 (>60)
[2022-12-16] MEDS: DAPTOmycin SDV 750 MG in NS 0.9% 50 ML 50 ML IVPB SCH (11:49)
[2022-12-16] MEDS: Cefepime 2 GM in Dextrose 2 GM/50 ML BAG IV SCH (14:54)
[2022-12-16 15:15] LABS: ABS Basophils 0.2 10^3/uL (0.0-0.1); ABS Eosinophils 0.3 10^3/uL (0.0-0.5); ABS Monocytes 1.8 10^3/uL (0.0-1.1); ABS Neutrophils 9.8 10^3/uL (1.5-7.6); ABS Nucleated RBC 0.05 10^3/ul; Eosinophil % 1.8 %; Lymphocyte % 20.2 %; Nucleated Red Blood Cells % 0.3 /100 WBC (0.0-0.4)
[2022-12-16] MEDS: Senna TAB 8.6 mg TAB PO SCH (20:10)
[2022-12-17] MEDS: Cefepime 2 GM in Dextrose 2 GM/50 ML BAG IV SCH ×2 (02:02→14:01)
[2022-12-17] MEDS: Nicotine GUM 4MG FRUIT FLAVOR PO PRN ×6 (06:17→20:28)
[2022-12-17 07:07] LABS: ABS Basophils 0.2 10^3/uL (0.0-0.1); ABS Eosinophils 0.4 10^3/uL (0.0-0.5); ABS Lymphocytes 4.2 10^3/uL (1.0-4.8); ABS Monocytes 1.4 10^3/uL (0.0-1.1); ABS Neutrophils 9.9 10^3/uL (1.5-7.6); ABS Nucleated RBC 0.06 10^3/ul; Eosinophil % 2.2 %; Hematocrit 27.3 % (38-53); Hemoglobin 8.2 g/dL (13.2-16.3); Lymphocyte % 25.9 %; Mean Corpuscular Hemoglobin 24.1 pg (27-33); Mean Corpuscular Hgb Conc 30.2 g/dL (31-36); Mean Corpuscular Volume 79.7 fL (80-97); Mean Platelet Volume 8.3 fL (7.5-11.2); Nucleated Red Blood Cells % 0.4 /100 WBC (0.0-0.4); Platelet Count 1251 10^3/uL (150-450); Red Blood Count 3.42 10^6/uL (4.06-5.63); Red Cell Distribution Width 18.8 % (12-17); White Blood Count 16.2 10^3/uL (3.6-10.2)
[2022-12-17 07:22] LABS: C Reactive Protein 83.56 mg/L (<8.01); Creatinine, Serum 0.6 mg/dL (0.67-1.17); Potassium 4.2 mmol/L (3.5-5.0); eGFR CKD-EPI 129.9 (>60)
[2022-12-17] MEDS: DULoxetine DR 30 mg CAP PO SCH (09:22)
[2022-12-17] MEDS: Cholecalciferol (VIT D3) 1,000 unit TAB PO SCH (09:23)
[2022-12-17] MEDS: Polyethylene Glycol 3350 17 GM PACKET PO SCH (09:26)
[2022-12-17] MEDS: Nystatin TOP POWDER 15 GM BTL TOPICAL SCH ×2 (09:26→20:46)
[2022-12-17] MEDS: Nicotine PATCH 21 MG/24 HR PATCH TRANSDERM SCH (09:26)
[2022-12-17] MEDS: DAPTOmycin SDV 750 MG in NS 0.9% 50 ML 50 ML IVPB SCH (11:46)
[2022-12-17] MEDS: Senna TAB 8.6 mg TAB PO SCH (20:29)
[2022-12-18] MEDS: Cefepime 2 GM in Dextrose 2 GM/50 ML BAG IV SCH ×2 (02:20→14:06)
[2022-12-18] MEDS: Nicotine GUM 4MG FRUIT FLAVOR PO PRN ×9 (02:28→21:48)
[2022-12-18 06:01] LABS: ABS Basophils 0.3 10^3/uL (0.0-0.1); ABS Eosinophils 0.4 10^3/uL (0.0-0.5); ABS Lymphocytes 3.5 10^3/uL (1.0-4.8); ABS Monocytes 1.5 10^3/uL (0.0-1.1); ABS Neutrophils 9.1 10^3/uL (1.5-7.6); ABS Nucleated RBC 0.04 10^3/ul; Hematocrit 26.4 % (38-53); Hemoglobin 7.9 g/dL (13.2-16.3); Lymphocyte % 23.8 %; Mean Corpuscular Hemoglobin 23.5 pg (27-33); Mean Corpuscular Hgb Conc 30.1 g/dL (31-36); Mean Platelet Volume 8.3 fL (7.5-11.2); Nucleated Red Blood Cells % 0.3 /100 WBC (0.0-0.4); Platelet Count 1170 10^3/uL (150-450); Red Blood Count 3.39 10^6/uL (4.06-5.63); White Blood Count 14.9 10^3/uL (3.6-10.2)
[2022-12-18 06:04] LABS: C Reactive Protein 72.95 mg/L (<8.01); Calcium 8.8 mg/dL (8.6-10.3); Creatinine, Serum 0.56 mg/dL (0.67-1.17); Potassium 4.2 mmol/L (3.5-5.0); eGFR CKD-EPI 132.6 (>60)
[2022-12-18] MEDS: DULoxetine DR 30 mg CAP PO SCH (09:38)
[2022-12-18] MEDS: Cholecalciferol (VIT D3) 1,000 unit TAB PO SCH (09:38)
[2022-12-18] MEDS: Nystatin TOP POWDER 15 GM BTL TOPICAL SCH ×2 (09:39→22:15)
[2022-12-18] MEDS: Polyethylene Glycol 3350 17 GM PACKET PO SCH (09:39)
[2022-12-18] MEDS: Nicotine PATCH 21 MG/24 HR PATCH TRANSDERM SCH (09:39)
[2022-12-18] MEDS: DAPTOmycin SDV 750 MG in NS 0.9% 50 ML 50 ML IVPB SCH (11:35)
[2022-12-18] MEDS: Morphine 2 MG/ML SYRINGE IV PRN (14:05)
[2022-12-18] MEDS: Morphine PCA ADULT 5 MG/ML 30 ML PCA SCH (14:49)
[2022-12-18] MEDS: Senna TAB 8.6 mg TAB PO SCH (21:48)
[2022-12-19] MEDS: Nicotine GUM 4MG FRUIT FLAVOR PO PRN ×10 (00:31→23:54)
[2022-12-19] MEDS: Cefepime 2 GM in Dextrose 2 GM/50 ML BAG IV SCH ×2 (02:46→13:23)
[2022-12-19 05:51] LABS: Hematocrit 27.2 % (38-53); Hemoglobin 8.4 g/dL (13.2-16.3); Mean Corpuscular Hemoglobin 23.7 pg (27-33); Mean Corpuscular Hgb Conc 30.8 g/dL (31-36); Mean Platelet Volume 8.2 fL (7.5-11.2); Platelet Count 1213 10^3/uL (150-450); Red Blood Count 3.53 10^6/uL (4.06-5.63); Red Cell Distribution Width 19.1 % (12-17); White Blood Count 14.6 10^3/uL (3.6-10.2)
[2022-12-19 06:04] LABS: CRP High Sensitivity 52.9 mg/L (<2.00); Creatinine, Serum 0.53 mg/dL (0.67-1.17); Potassium 4.2 mmol/L (3.5-5.0); eGFR CKD-EPI 134.9 (>60)
[2022-12-19 06:18] LABS: ABS Basophils 0.3 10^3/uL (0.0-0.1); ABS Eosinophils 0.4 10^3/uL (0.0-0.5); ABS Lymphocytes 4.1 10^3/uL (1.0-4.8); ABS Monocytes 1.5 10^3/uL (0.0-1.1); ABS Neutrophils 8.4 10^3/uL (1.5-7.6); ABS Nucleated RBC 0.07 10^3/ul; Eosinophil % 2.4 %; Lymphocyte % 28.1 %; Nucleated Red Blood Cells % 0.5 /100 WBC (0.0-0.4)
[2022-12-19] MEDS: Nicotine PATCH 21 MG/24 HR PATCH TRANSDERM SCH (09:14)
[2022-12-19] MEDS: Nystatin TOP POWDER 15 GM BTL TOPICAL SCH ×2 (09:14→21:02)
[2022-12-19] MEDS: DULoxetine DR 30 mg CAP PO SCH (09:20)
[2022-12-19] MEDS: Cholecalciferol (VIT D3) 1,000 unit TAB PO SCH (09:21)
[2022-12-19] MEDS: Polyethylene Glycol 3350 17 GM PACKET PO SCH (09:26)
[2022-12-19] MEDS: DAPTOmycin SDV 750 MG in NS 0.9% 50 ML 50 ML IVPB SCH (11:10)
[2022-12-19] MEDS: Senna TAB 8.6 mg TAB PO SCH (21:04)
[2022-12-20] MEDS: Cefepime 2 GM in Dextrose 2 GM/50 ML BAG IV SCH (00:36)
[2022-12-20] MEDS: Morphine PCA ADULT 5 MG/ML 30 ML PCA SCH (01:28)
[2022-12-20] MEDS: Nicotine GUM 4MG FRUIT FLAVOR PO PRN ×9 (01:51→22:35)
[2022-12-20] MEDS: Morphine 2 MG/ML SYRINGE IV PRN (04:36)
[2022-12-20 06:18] LABS: Potassium 4.2 mmol/L (3.5-5.0)
[2022-12-20 06:19] LABS: Calcium 8.9 mg/dL (8.6-10.3); Creatinine, Serum 0.54 mg/dL (0.67-1.17); eGFR CKD-EPI 134.1 (>60)
[2022-12-20 06:20] LABS: ABS Basophils 0.3 10^3/uL (0.0-0.1); ABS Eosinophils 0.4 10^3/uL (0.0-0.5); ABS Lymphocytes 3.6 10^3/uL (1.0-4.8); ABS Monocytes 1.6 10^3/uL (0.0-1.1); ABS Neutrophils 9.2 10^3/uL (1.5-7.6); Eosinophil % 2.8 %; Hematocrit 25.3 % (38-53); Hemoglobin 7.8 g/dL (13.2-16.3); Lymphocyte % 23.8 %; Mean Corpuscular Hemoglobin 23.5 pg (27-33); Mean Corpuscular Hgb Conc 30.7 g/dL (31-36); Mean Corpuscular Volume 76.5 fL (80-97); Mean Platelet Volume 8.1 fL (7.5-11.2); Nucleated Red Blood Cells % 0.7 /100 WBC (0.0-0.4); Platelet Count 1117 10^3/uL (150-450); Red Blood Count 3.31 10^6/uL (4.06-5.63); Red Cell Distribution Width 19.7 % (12-17)
[2022-12-20 08:39] LABS: C Reactive Protein 52.4 mg/L (<8.01)
[2022-12-20] MEDS: Cholecalciferol (VIT D3) 1,000 unit TAB PO SCH (08:40)
[2022-12-20] MEDS: DULoxetine DR 30 mg CAP PO SCH (08:41)
[2022-12-20] MEDS: Nicotine PATCH 21 MG/24 HR PATCH TRANSDERM SCH (08:43)
[2022-12-20] MEDS: Polyethylene Glycol 3350 17 GM PACKET PO SCH (08:45)
[2022-12-20] MEDS: Nystatin TOP POWDER 15 GM BTL TOPICAL SCH ×2 (08:45→21:26)
[2022-12-20] MEDS: DAPTOmycin SDV 750 MG in NS 0.9% 50 ML 50 ML IVPB SCH (11:57)
[2022-12-20 12:26] LABS: Erythrocyte Sed Rate 56 mm/Hr (0-14)
[2022-12-20] MEDS: Senna TAB 8.6 mg TAB PO SCH (19:59)
[2022-12-21] MEDS: Nicotine GUM 4MG FRUIT FLAVOR PO PRN ×8 (01:08→23:31)
[2022-12-21 05:55] LABS: ABS Basophils 0.4 10^3/uL (0.0-0.1); ABS Eosinophils 0.3 10^3/uL (0.0-0.5); ABS Lymphocytes 3.9 10^3/uL (1.0-4.8); ABS Monocytes 1.7 10^3/uL (0.0-1.1); ABS Neutrophils 7.9 10^3/uL (1.5-7.6); ABS Nucleated RBC 0.04 10^3/ul; Eosinophil % 2.2 %; Hematocrit 26.1 % (38-53); Hemoglobin 8.1 g/dL (13.2-16.3); Lymphocyte % 27.3 %; Mean Corpuscular Hemoglobin 23.8 pg (27-33); Mean Corpuscular Hgb Conc 30.9 g/dL (31-36); Mean Platelet Volume 8.3 fL (7.5-11.2); Nucleated Red Blood Cells % 0.3 /100 WBC (0.0-0.4); Platelet Count 1198 10^3/uL (150-450); Red Blood Count 3.39 10^6/uL (4.06-5.63); Red Cell Distribution Width 19.9 % (12-17); White Blood Count 14.3 10^3/uL (3.6-10.2)
[2022-12-21 05:57] LABS: C Reactive Protein 63.07 mg/L (<8.01); Calcium 9.1 mg/dL (8.6-10.3); Creatinine, Serum 0.6 mg/dL (0.67-1.17); Potassium 4.2 mmol/L (3.5-5.0); eGFR CKD-EPI 129.9 (>60)
[2022-12-21] MEDS: Nicotine PATCH 21 MG/24 HR PATCH TRANSDERM SCH (08:39)
[2022-12-21] MEDS: DULoxetine DR 30 mg CAP PO SCH (08:40)
[2022-12-21] MEDS: Cholecalciferol (VIT D3) 1,000 unit TAB PO SCH (08:41)
[2022-12-21] MEDS: Polyethylene Glycol 3350 17 GM PACKET PO SCH (08:55)
[2022-12-21] MEDS: Nystatin TOP POWDER 15 GM BTL TOPICAL SCH ×2 (08:55→20:26)
[2022-12-21] MEDS: DAPTOmycin SDV 750 MG in NS 0.9% 50 ML 50 ML IVPB SCH (11:14)
[2022-12-21] MEDS: Morphine PCA ADULT 5 MG/ML 30 ML PCA SCH (15:13)
[2022-12-21] MEDS: Senna TAB 8.6 mg TAB PO SCH (20:25)
[2022-12-22] MEDS: Nicotine GUM 4MG FRUIT FLAVOR PO PRN ×7 (06:13→22:30)
[2022-12-22 06:35] LABS: ABS Basophils 0.2 10^3/uL (0.0-0.1); ABS Eosinophils 0.4 10^3/uL (0.0-0.5); ABS Lymphocytes 3.5 10^3/uL (1.0-4.8); ABS Monocytes 1.9 10^3/uL (0.0-1.1); ABS Neutrophils 6.6 10^3/uL (1.5-7.6); ABS Nucleated RBC 0.03 10^3/ul; Eosinophil % 3.5 %; Hematocrit 26.7 % (38-53); Hemoglobin 8.1 g/dL (13.2-16.3); Lymphocyte % 27.8 %; Mean Corpuscular Hemoglobin 23.5 pg (27-33); Mean Corpuscular Hgb Conc 30.5 g/dL (31-36); Mean Corpuscular Volume 77.1 fL (80-97); Mean Platelet Volume 8.4 fL (7.5-11.2); Nucleated Red Blood Cells % 0.2 /100 WBC (0.0-0.4); Platelet Count 1162 10^3/uL (150-450); Red Blood Count 3.46 10^6/uL (4.06-5.63); Red Cell Distribution Width 19.9 % (12-17); White Blood Count 12.7 10^3/uL (3.6-10.2)
[2022-12-22 07:11] LABS: Calcium 9.4 mg/dL (8.6-10.3); Magnesium 1.9 mg/dL (1.9-2.7)
[2022-12-22 07:17] LABS: C Reactive Protein 57.62 mg/L (<8.01); Creatinine, Serum 0.57 mg/dL (0.67-1.17); eGFR CKD-EPI 131.9 (>60)
[2022-12-22] MEDS: Nicotine PATCH 21 MG/24 HR PATCH TRANSDERM SCH (09:05)
[2022-12-22] MEDS: DULoxetine DR 30 mg CAP PO SCH (09:06)
[2022-12-22] MEDS: Polyethylene Glycol 3350 17 GM PACKET PO SCH (09:07)
[2022-12-22] MEDS: Nystatin TOP POWDER 15 GM BTL TOPICAL SCH ×2 (09:07→20:28)
[2022-12-22] MEDS: Cholecalciferol (VIT D3) 1,000 unit TAB PO SCH (09:11)
[2022-12-22] MEDS: DAPTOmycin SDV 750 MG in NS 0.9% 50 ML 50 ML IVPB SCH (11:37)
[2022-12-22] MEDS: Morphine 10 MG/ML VIAL (1 ml) IV SCH ×6 (14:22→22:06)
[2022-12-22] MEDS: Senna TAB 8.6 mg TAB PO SCH (20:19)
[2022-12-23] MEDS: Morphine 10 MG/ML VIAL (1 ml) IV SCH ×11 (00:20→22:27)
[2022-12-23] MEDS: Nicotine GUM 4MG FRUIT FLAVOR PO PRN ×9 (00:25→22:35)
[2022-12-23] MEDS: Cholecalciferol (VIT D3) 1,000 unit TAB PO SCH (08:05)
[2022-12-23] MEDS: DULoxetine DR 30 mg CAP PO SCH (08:05)
[2022-12-23] MEDS: Nicotine PATCH 21 MG/24 HR PATCH TRANSDERM SCH (08:06)
[2022-12-23] MEDS: Nystatin TOP POWDER 15 GM BTL TOPICAL SCH ×2 (08:11→22:35)
[2022-12-23] MEDS: Polyethylene Glycol 3350 17 GM PACKET PO SCH (08:11)
[2022-12-23] MEDS: DAPTOmycin SDV 750 MG in NS 0.9% 50 ML 50 ML IVPB SCH (10:48)
[2022-12-23] MEDS: Senna TAB 8.6 mg TAB PO SCH (22:33)
[2022-12-24] MEDS: Morphine 10 MG/ML VIAL (1 ml) IV SCH ×11 (00:23→21:21)
[2022-12-24] MEDS: Nicotine GUM 4MG FRUIT FLAVOR PO PRN ×7 (02:42→21:21)
[2022-12-24 06:15] LABS: ABS Basophils 0.2 10^3/uL (0.0-0.1); ABS Eosinophils 0.3 10^3/uL (0.0-0.5); ABS Lymphocytes 4.3 10^3/uL (1.0-4.8); ABS Monocytes 1.3 10^3/uL (0.0-1.1); ABS Neutrophils 6.9 10^3/uL (1.5-7.6); ABS Nucleated RBC 0.02 10^3/ul; Eosinophil % 2.7 %; Hematocrit 27.1 % (38-53); Hemoglobin 8.2 g/dL (13.2-16.3); Lymphocyte % 32.8 %; Mean Corpuscular Hemoglobin 22.9 pg (27-33); Mean Corpuscular Hgb Conc 30.1 g/dL (31-36); Mean Platelet Volume 8.5 fL (7.5-11.2); Nucleated Red Blood Cells % 0.1 /100 WBC (0.0-0.4); Platelet Count 1037 10^3/uL (150-450); Red Blood Count 3.57 10^6/uL (4.06-5.63); Red Cell Distribution Width 20.4 % (12-17)
[2022-12-24 06:38] LABS: C Reactive Protein 29.05 mg/L (<8.01); Calcium 9.4 mg/dL (8.6-10.3); Creatinine, Serum 0.6 mg/dL (0.67-1.17); Magnesium 1.8 mg/dL (1.9-2.7); Potassium 3.9 mmol/L (3.5-5.0); eGFR CKD-EPI 129.9 (>60)
[2022-12-24] MEDS: Polyethylene Glycol 3350 17 GM PACKET PO SCH (08:01)
[2022-12-24] MEDS: Cholecalciferol (VIT D3) 1,000 unit TAB PO SCH (08:17)
[2022-12-24] MEDS: DULoxetine DR 30 mg CAP PO SCH (08:18)
[2022-12-24] MEDS: Nicotine PATCH 21 MG/24 HR PATCH TRANSDERM SCH (08:31)
[2022-12-24] MEDS: Nystatin TOP POWDER 15 GM BTL TOPICAL SCH (08:31)
[2022-12-24] MEDS: DAPTOmycin SDV 750 MG in NS 0.9% 50 ML 50 ML IVPB SCH (10:58)
[2022-12-24] MEDS: Senna TAB 8.6 mg TAB PO SCH (21:23)
[2022-12-25] MEDS: Morphine 10 MG/ML VIAL (1 ml) IV SCH ×8 (00:40→21:30)
[2022-12-25] MEDS: Nicotine GUM 4MG FRUIT FLAVOR PO PRN ×10 (00:40→21:31)
[2022-12-25] MEDS: DULoxetine DR 30 mg CAP PO SCH (08:58)
[2022-12-25] MEDS: Cholecalciferol (VIT D3) 1,000 unit TAB PO SCH (08:58)
[2022-12-25] MEDS: Polyethylene Glycol 3350 17 GM PACKET PO SCH (08:59)
[2022-12-25] MEDS: Nicotine PATCH 21 MG/24 HR PATCH TRANSDERM SCH (08:59)
[2022-12-25 10:36] LABS: ABS Basophils 0.1 10^3/uL (0.0-0.1); ABS Eosinophils 0.4 10^3/uL (0.0-0.5); ABS Lymphocytes 3.1 10^3/uL (1.0-4.8); ABS Monocytes 1.7 10^3/uL (0.0-1.1); ABS Neutrophils 9.8 10^3/uL (1.5-7.6); Eosinophil % 2.6 %; Hematocrit 28.8 % (38-53); Hemoglobin 8.7 g/dL (13.2-16.3); Lymphocyte % 20.6 %; Mean Corpuscular Hemoglobin 22.7 pg (27-33); Mean Corpuscular Hgb Conc 30.2 g/dL (31-36); Mean Corpuscular Volume 75.1 fL (80-97); Mean Platelet Volume 8.3 fL (7.5-11.2); Nucleated Red Blood Cells % 0.1 /100 WBC (0.0-0.4); Platelet Count 1110 10^3/uL (150-450); Red Blood Count 3.83 10^6/uL (4.06-5.63); Red Cell Distribution Width 20.7 % (12-17); White Blood Count 15.1 10^3/uL (3.6-10.2)
[2022-12-25 10:37] LABS: ABS Nucleated RBC 0.02 10^3/ul
[2022-12-25] MEDS: DAPTOmycin SDV 750 MG in NS 0.9% 50 ML 50 ML IVPB SCH (11:07)
[2022-12-25 14:08] LABS: Erythrocyte Sed Rate 50 mm/Hr (0-14)
[2022-12-25] MEDS: Morphine 2 MG/ML SYRINGE IV PRN (19:57)
[2022-12-25] MEDS: Senna TAB 8.6 mg TAB PO SCH (20:01)
[2022-12-26] MEDS: Morphine 10 MG/ML VIAL (1 ml) IV SCH ×8 (00:44→20:58)
[2022-12-26] MEDS: Nicotine GUM 4MG FRUIT FLAVOR PO PRN ×8 (00:45→21:05)
[2022-12-26 06:04] LABS: ABS Basophils 0.5 10^3/uL (0.0-0.1); ABS Eosinophils 0.4 10^3/uL (0.0-0.5); ABS Lymphocytes 3.8 10^3/uL (1.0-4.8); ABS Monocytes 1.2 10^3/uL (0.0-1.1); ABS Neutrophils 5.5 10^3/uL (1.5-7.6); ABS Nucleated RBC 0.02 10^3/ul; Eosinophil % 3.6 %; Hematocrit 27.4 % (38-53); Hemoglobin 8.4 g/dL (13.2-16.3); Lymphocyte % 33.3 %; Mean Corpuscular Hemoglobin 23.2 pg (27-33); Mean Corpuscular Hgb Conc 30.7 g/dL (31-36); Mean Corpuscular Volume 75.7 fL (80-97); Mean Platelet Volume 8.3 fL (7.5-11.2); Nucleated Red Blood Cells % 0.2 /100 WBC (0.0-0.4); Platelet Count 1000 10^3/uL (150-450); Red Blood Count 3.62 10^6/uL (4.06-5.63); Red Cell Distribution Width 20.2 % (12-17); White Blood Count 11.3 10^3/uL (3.6-10.2)
[2022-12-26 06:34] LABS: C Reactive Protein 26.88 mg/L (<8.01); Calcium 9.6 mg/dL (8.6-10.3); Creatinine, Serum 0.68 mg/dL (0.67-1.17); Magnesium 1.9 mg/dL (1.9-2.7); Potassium 4.2 mmol/L (3.5-5.0); eGFR CKD-EPI 125.1 (>60)
[2022-12-26] MEDS: Cholecalciferol (VIT D3) 1,000 unit TAB PO SCH (09:03)
[2022-12-26] MEDS: DULoxetine DR 30 mg CAP PO SCH (09:04)
[2022-12-26] MEDS: Nicotine PATCH 21 MG/24 HR PATCH TRANSDERM SCH (09:05)
[2022-12-26] MEDS: Polyethylene Glycol 3350 17 GM PACKET PO SCH (09:10)
[2022-12-26] MEDS: DAPTOmycin SDV 750 MG in NS 0.9% 50 ML 50 ML IVPB SCH (11:14)
[2022-12-26] MEDS: Senna TAB 8.6 mg TAB PO SCH (21:06)
[2022-12-27] MEDS: Morphine 10 MG/ML VIAL (1 ml) IV SCH ×8 (00:05→21:30)
[2022-12-27] MEDS: Nicotine GUM 4MG FRUIT FLAVOR PO PRN ×9 (00:06→21:33)
[2022-12-27] MEDS: Cholecalciferol (VIT D3) 1,000 unit TAB PO SCH (08:07)
[2022-12-27] MEDS: DULoxetine DR 30 mg CAP PO SCH (08:09)
[2022-12-27] MEDS: Nicotine PATCH 21 MG/24 HR PATCH TRANSDERM SCH (08:11)
[2022-12-27] MEDS: Polyethylene Glycol 3350 17 GM PACKET PO SCH (08:11)
[2022-12-27] MEDS: DAPTOmycin SDV 750 MG in NS 0.9% 50 ML 50 ML IVPB SCH (11:29)
[2022-12-27] MEDS ORDERED: Midazolam 2 mg/2 ml VIAL 1 mg/ml 2 ml VIAL (2 mg) ONE (15:44)
[2022-12-27] MEDS: Senna TAB 8.6 mg TAB PO SCH (21:37)
[2022-12-28] MEDS: Morphine 10 MG/ML VIAL (1 ml) IV SCH ×8 (00:56→20:55)
[2022-12-28] MEDS: Nicotine GUM 4MG FRUIT FLAVOR PO PRN ×10 (01:07→23:16)
[2022-12-28 06:27] LABS: Calcium 9.4 mg/dL (8.6-10.3); Creatinine, Serum 0.62 mg/dL (0.67-1.17); Potassium 4.1 mmol/L (3.5-5.0); eGFR CKD-EPI 128.6 (>60)
[2022-12-28 06:38] LABS: ABS Basophils 0.2 10^3/uL (0.0-0.1); ABS Eosinophils 0.4 10^3/uL (0.0-0.5); ABS Lymphocytes 3.2 10^3/uL (1.0-4.8); ABS Monocytes 1.2 10^3/uL (0.0-1.1); ABS Neutrophils 6.3 10^3/uL (1.5-7.6); ABS Nucleated RBC 0.03 10^3/ul; Anisocytosis 1+; Eosinophil % 3.6 %; Hematocrit 25.4 % (38-53); Hemoglobin 7.9 g/dL (13.2-16.3); Lymphocyte % 28.3 %; Mean Corpuscular Hemoglobin 23.1 pg (27-33); Mean Corpuscular Hgb Conc 30.9 g/dL (31-36); Mean Corpuscular Volume 74.7 fL (80-97); Mean Platelet Volume 8.6 fL (7.5-11.2); Microcytosis 2+; Nucleated Red Blood Cells % 0.3 /100 WBC (0.0-0.4); Platelet Count 842 10^3/uL (150-450); Red Blood Count 3.41 10^6/uL (4.06-5.63); Red Cell Distribution Width 20.8 % (12-17); White Blood Count 11.3 10^3/uL (3.6-10.2)
[2022-12-28 06:39] LABS: Hypochromasia 1+; Polychromasia 1+
[2022-12-28 08:24] LABS: C Reactive Protein 24.56 mg/L (<8.01)
[2022-12-28] MEDS: Cholecalciferol (VIT D3) 1,000 unit TAB PO SCH (08:57)
[2022-12-28] MEDS: DULoxetine DR 30 mg CAP PO SCH (08:58)
[2022-12-28 09:34] LABS: Erythrocyte Sed Rate 61 mm/Hr (0-14)
[2022-12-28] MEDS: Nicotine PATCH 21 MG/24 HR PATCH TRANSDERM SCH (09:48)
[2022-12-28] MEDS: Polyethylene Glycol 3350 17 GM PACKET PO SCH (09:48)
[2022-12-28] MEDS: DAPTOmycin SDV 750 MG in NS 0.9% 50 ML 50 ML IVPB SCH (11:59)
[2022-12-28] MEDS: Morphine 2 MG/ML SYRINGE IV PRN (17:04)
[2022-12-28] MEDS: Senna TAB 8.6 mg TAB PO SCH (20:55)
[2022-12-29] MEDS: Morphine 10 MG/ML VIAL (1 ml) IV SCH ×8 (00:14→21:14)
[2022-12-29] MEDS: Nicotine GUM 4MG FRUIT FLAVOR PO PRN ×6 (02:41→21:23)
[2022-12-29] MEDS: Cholecalciferol (VIT D3) 1,000 unit TAB PO SCH (08:54)
[2022-12-29] MEDS: DULoxetine DR 30 mg CAP PO SCH (08:56)
[2022-12-29] MEDS: Polyethylene Glycol 3350 17 GM PACKET PO SCH (09:15)
[2022-12-29] MEDS: Nicotine PATCH 21 MG/24 HR PATCH TRANSDERM SCH (09:15)
[2022-12-29] MEDS: DAPTOmycin SDV 750 MG in NS 0.9% 50 ML 50 ML IVPB SCH (12:05)
[2022-12-29] MEDS: Senna TAB 8.6 mg TAB PO SCH (21:10)
[2022-12-30] MEDS: Morphine 10 MG/ML VIAL (1 ml) IV SCH ×8 (00:08→21:04)
[2022-12-30] MEDS: Nicotine GUM 4MG FRUIT FLAVOR PO PRN ×8 (00:08→21:08)
[2022-12-30] MEDS: Cholecalciferol (VIT D3) 1,000 unit TAB PO SCH (09:09)
[2022-12-30] MEDS: DULoxetine DR 30 mg CAP PO SCH (09:10)
[2022-12-30] MEDS: Nicotine PATCH 21 MG/24 HR PATCH TRANSDERM SCH (09:12)
[2022-12-30] MEDS: Polyethylene Glycol 3350 17 GM PACKET PO SCH (09:12)
[2022-12-30 11:37] LABS: Hemoglobin 8.4 g/dL (13.2-16.3); Mean Corpuscular Volume 73.2 fL (80-97); Mean Platelet Volume 8.4 fL (7.5-11.2); Platelet Count 758 10^3/uL (150-450); Red Blood Count 3.83 10^6/uL (4.06-5.63); Red Cell Distribution Width 20.8 % (12-17); White Blood Count 12.9 10^3/uL (3.6-10.2)
[2022-12-30 11:44] LABS: C Reactive Protein 23.01 mg/L (<8.01); Calcium 9.6 mg/dL (8.6-10.3); Creatinine, Serum 0.61 mg/dL (0.67-1.17); Potassium 4.1 mmol/L (3.5-5.0); eGFR CKD-EPI 129.3 (>60)
[2022-12-30] MEDS: DAPTOmycin SDV 750 MG in NS 0.9% 50 ML 50 ML IVPB SCH (12:07)
[2022-12-30 13:18] LABS: Anisocytosis 1+; Hypochromasia 2+; Microcytosis 2+; Polychromasia 1+
[2022-12-30 13:19] LABS: ABS Basophils 0.2 10^3/uL (0.0-0.1); ABS Eosinophils 0.4 10^3/uL (0.0-0.5); ABS Monocytes 1.7 10^3/uL (0.0-1.1); ABS Neutrophils 7.7 10^3/uL (1.5-7.6); ABS Nucleated RBC 0.02 10^3/ul; Eosinophil % 2.7 %; Nucleated Red Blood Cells % 0.2 /100 WBC (0.0-0.4); Target Cells 1+
[2022-12-30] MEDS: Senna TAB 8.6 mg TAB PO SCH (19:36)
[2022-12-31] MEDS: Morphine 10 MG/ML VIAL (1 ml) IV SCH ×8 (00:02→21:12)
[2022-12-31] MEDS: Nicotine GUM 4MG FRUIT FLAVOR PO PRN ×5 (03:16→20:38)
[2022-12-31 05:44] LABS: ABS Basophils 0.3 10^3/uL (0.0-0.1); ABS Eosinophils 0.5 10^3/uL (0.0-0.5); ABS Lymphocytes 3.5 10^3/uL (1.0-4.8); ABS Monocytes 1.6 10^3/uL (0.0-1.1); ABS Neutrophils 6.5 10^3/uL (1.5-7.6); ABS Nucleated RBC 0.01 10^3/ul; Hematocrit 29.8 % (38-53); Lymphocyte % 28.3 %; Mean Corpuscular Hemoglobin 22.1 pg (27-33); Mean Corpuscular Hgb Conc 30.1 g/dL (31-36); Mean Corpuscular Volume 73.5 fL (80-97); Mean Platelet Volume 8.6 fL (7.5-11.2); Platelet Count 858 10^3/uL (150-450); Red Blood Count 4.06 10^6/uL (4.06-5.63); Red Cell Distribution Width 20.5 % (12-17); White Blood Count 12.3 10^3/uL (3.6-10.2)
[2022-12-31 05:57] LABS: C Reactive Protein 27.02 mg/L (<8.01); Calcium 9.7 mg/dL (8.6-10.3); Creatinine, Serum 0.61 mg/dL (0.67-1.17); Potassium 4.3 mmol/L (3.5-5.0); eGFR CKD-EPI 129.3 (>60)
[2022-12-31] MEDS: Cholecalciferol (VIT D3) 1,000 unit TAB PO SCH (09:19)
[2022-12-31] MEDS: DULoxetine DR 30 mg CAP PO SCH (09:20)
[2022-12-31] MEDS: Nicotine PATCH 21 MG/24 HR PATCH TRANSDERM SCH (09:21)
[2022-12-31] MEDS: Polyethylene Glycol 3350 17 GM PACKET PO SCH (09:22)
[2022-12-31] MEDS: DAPTOmycin SDV 750 MG in NS 0.9% 50 ML 50 ML IVPB SCH (12:31)
[2022-12-31] MEDS: Senna TAB 8.6 mg TAB PO SCH (20:40)
[2023-01-01] MEDS: Morphine 10 MG/ML VIAL (1 ml) IV SCH ×8 (00:15→21:11)
[2023-01-01] MEDS: Nicotine GUM 4MG FRUIT FLAVOR PO PRN ×8 (00:16→21:13)
[2023-01-01] MEDS: Cholecalciferol (VIT D3) 1,000 unit TAB PO SCH (09:10)
[2023-01-01] MEDS: DULoxetine DR 30 mg CAP PO SCH (09:11)
[2023-01-01] MEDS: Polyethylene Glycol 3350 17 GM PACKET PO SCH (09:12)
[2023-01-01] MEDS: Nicotine PATCH 21 MG/24 HR PATCH TRANSDERM SCH (09:12)
[2023-01-01] MEDS: DAPTOmycin SDV 750 MG in NS 0.9% 50 ML 50 ML IVPB SCH (12:36)
[2023-01-01] MEDS: Senna TAB 8.6 mg TAB PO SCH (21:11)
[2023-01-02] MEDS: Morphine 10 MG/ML VIAL (1 ml) IV SCH ×8 (00:13→21:06)
[2023-01-02] MEDS: Nicotine GUM 4MG FRUIT FLAVOR PO PRN ×5 (06:14→21:05)
[2023-01-02] MEDS: Cholecalciferol (VIT D3) 1,000 unit TAB PO SCH (09:08)
[2023-01-02] MEDS: DULoxetine DR 30 mg CAP PO SCH (09:09)
[2023-01-02] MEDS: Nicotine PATCH 21 MG/24 HR PATCH TRANSDERM SCH (09:16)
[2023-01-02] MEDS: Polyethylene Glycol 3350 17 GM PACKET PO SCH (09:17)
[2023-01-02] MEDS: DAPTOmycin SDV 750 MG in NS 0.9% 50 ML 50 ML IVPB SCH (12:54)
[2023-01-02] MEDS: Senna TAB 8.6 mg TAB PO SCH (21:12)
[2023-01-03] MEDS: Morphine 10 MG/ML VIAL (1 ml) IV SCH ×7 (00:02→22:16)
[2023-01-03] MEDS: Nicotine GUM 4MG FRUIT FLAVOR PO PRN ×7 (00:06→21:33)
[2023-01-03 07:09] LABS: Hematocrit 29.6 % (38-53); Hemoglobin 9.3 g/dL (13.2-16.3); Mean Corpuscular Hemoglobin 22.8 pg (27-33); Mean Corpuscular Hgb Conc 31.3 g/dL (31-36); Mean Corpuscular Volume 72.8 fL (80-97); Mean Platelet Volume 8.5 fL (7.5-11.2); Platelet Count 843 10^3/uL (150-450); Red Blood Count 4.06 10^6/uL (4.06-5.63); Red Cell Distribution Width 20.8 % (12-17); White Blood Count 10.9 10^3/uL (3.6-10.2)
[2023-01-03 07:19] LABS: C Reactive Protein 22.37 mg/L (<8.01); Calcium 9.7 mg/dL (8.6-10.3); Creatinine, Serum 0.75 mg/dL (0.67-1.17); Potassium 4.3 mmol/L (3.5-5.0); eGFR CKD-EPI 121.4 (>60)
[2023-01-03 09:29] LABS: Anisocytosis 2+; Hypochromasia 2+; Microcytosis 1+; Polychromasia 1+; Target Cells 1+
[2023-01-03 09:30] LABS: ABS Basophils 0.2 10^3/uL (0.0-0.1); ABS Eosinophils 0.2 10^3/uL (0.0-0.5); ABS Lymphocytes 2.7 10^3/uL (1.0-4.8); ABS Monocytes 1.6 10^3/uL (0.0-1.1); ABS Neutrophils 6.1 10^3/uL (1.5-7.6); ABS Nucleated RBC 0.01 10^3/ul; Eosinophil % 2.2 %; Lymphocyte % 24.5 %; Nucleated Red Blood Cells % 0.1 /100 WBC (0.0-0.4)
[2023-01-03] MEDS: Cholecalciferol (VIT D3) 1,000 unit TAB PO SCH (09:52)
[2023-01-03] MEDS: DULoxetine DR 30 mg CAP PO SCH (09:53)
[2023-01-03] MEDS: Nicotine PATCH 21 MG/24 HR PATCH TRANSDERM SCH (09:54)
[2023-01-03] MEDS: Polyethylene Glycol 3350 17 GM PACKET PO SCH (09:54)
[2023-01-03 10:42] LABS: Erythrocyte Sed Rate 35 mm/Hr (0-14)
[2023-01-03] MEDS: Morphine 2 MG/ML SYRINGE IV PRN (12:32)
[2023-01-03] MEDS: DAPTOmycin SDV 750 MG in NS 0.9% 50 ML 50 ML IVPB SCH (12:38)
[2023-01-03] MEDS: Senna TAB 8.6 mg TAB PO SCH (21:33)
[2023-01-04] MEDS: Nicotine GUM 4MG FRUIT FLAVOR PO PRN ×7 (02:22→22:48)
[2023-01-04] MEDS: Morphine 10 MG/ML VIAL (1 ml) IV SCH ×6 (02:22→22:48)
[2023-01-04] MEDS: DULoxetine DR 30 mg CAP PO SCH (09:14)
[2023-01-04] MEDS: Nicotine PATCH 21 MG/24 HR PATCH TRANSDERM SCH (09:15)
[2023-01-04] MEDS: Polyethylene Glycol 3350 17 GM PACKET PO SCH (09:15)
[2023-01-04] MEDS: Cholecalciferol (VIT D3) 1,000 unit TAB PO SCH (09:15)
[2023-01-04] MEDS: DAPTOmycin SDV 750 MG in NS 0.9% 50 ML 50 ML IVPB SCH (11:51)
[2023-01-04] MEDS: Senna TAB 8.6 mg TAB PO SCH (21:15)
[2023-01-05] MEDS: Morphine 10 MG/ML VIAL (1 ml) IV SCH ×6 (02:53→22:18)
[2023-01-05] MEDS: Nicotine GUM 4MG FRUIT FLAVOR PO PRN ×7 (07:30→21:26)
[2023-01-05] MEDS: Cholecalciferol (VIT D3) 1,000 unit TAB PO SCH (09:39)
[2023-01-05] MEDS: DULoxetine DR 30 mg CAP PO SCH (09:39)
[2023-01-05] MEDS: DAPTOmycin SDV 750 MG in NS 0.9% 50 ML 50 ML IVPB SCH (10:33)
[2023-01-05] MEDS: Polyethylene Glycol 3350 17 GM PACKET PO SCH (11:09)
[2023-01-05] MEDS: Nicotine PATCH 21 MG/24 HR PATCH TRANSDERM SCH (11:09)
[2023-01-05] MEDS: Morphine 2 MG/ML SYRINGE IV PRN (16:09)
[2023-01-05] MEDS: Senna TAB 8.6 mg TAB PO SCH (21:22)
[2023-01-05] MEDS ORDERED: Acetaminophen IV 1 GM/100ML 1,000 MG/100 ML BAG IV ONE ×2 (23:44→23:45)
[2023-01-05 23:53] LABS: Hematocrit 27.8 % (38-53); Hemoglobin 8.5 g/dL (13.2-16.3)
[2023-01-06] MEDS: Morphine 10 MG/ML VIAL (1 ml) IV SCH ×6 (03:01→23:21)
[2023-01-06] MEDS: Nicotine PATCH 21 MG/24 HR PATCH TRANSDERM SCH (07:59)
[2023-01-06] MEDS: Polyethylene Glycol 3350 17 GM PACKET PO SCH (07:59)
[2023-01-06] MEDS: Cholecalciferol (VIT D3) 1,000 unit TAB PO SCH (08:06)
[2023-01-06] MEDS: DULoxetine DR 30 mg CAP PO SCH (08:07)
[2023-01-06] MEDS: Nicotine GUM 4MG FRUIT FLAVOR PO PRN ×5 (08:07→17:46)
[2023-01-06] MEDS: Morphine 2 MG/ML SYRINGE IV PRN ×3 (08:07→20:26)
[2023-01-06] MEDS: DAPTOmycin SDV 750 MG in NS 0.9% 50 ML 50 ML IVPB SCH (11:42)
[2023-01-06] MEDS: Senna TAB 8.6 mg TAB PO SCH (22:05)
[2023-01-07] MEDS: Morphine 10 MG/ML VIAL (1 ml) IV SCH ×6 (03:50→21:04)
[2023-01-07] MEDS: Morphine 2 MG/ML SYRINGE IV PRN (03:56)
[2023-01-07] MEDS: Nicotine GUM 4MG FRUIT FLAVOR PO PRN ×4 (09:16→21:05)
[2023-01-07] MEDS: Cholecalciferol (VIT D3) 1,000 unit TAB PO SCH (09:17)
[2023-01-07] MEDS: DULoxetine DR 30 mg CAP PO SCH (09:18)
[2023-01-07] MEDS: Polyethylene Glycol 3350 17 GM PACKET PO SCH (09:19)
[2023-01-07] MEDS: Nicotine PATCH 21 MG/24 HR PATCH TRANSDERM SCH (09:19)
[2023-01-07] MEDS ORDERED: Morphine 2 MG/ML SYRINGE IV PRN (09:52)
[2023-01-07] MEDS: DAPTOmycin SDV 750 MG in NS 0.9% 50 ML 50 ML IVPB SCH (12:05)
[2023-01-07] MEDS ORDERED: Morphine ORAL CONCENTRATE 5 MG/0.25 ML ORAL.SYRIN PO ONE ×2 (17:54→22:40)
[2023-01-07] MEDS: Senna TAB 8.6 mg TAB PO SCH (21:03)
[2023-01-08] MEDS: Morphine 10 MG/ML VIAL (1 ml) IV SCH ×2 (01:40→05:28)
[2023-01-08] MEDS: Nicotine GUM 4MG FRUIT FLAVOR PO PRN ×6 (04:44→22:13)
[2023-01-08 06:35] LABS: ABS Basophils 0.1 10^3/uL (0.0-0.1); ABS Eosinophils 0.4 10^3/uL (0.0-0.5); ABS Monocytes 1.3 10^3/uL (0.0-1.1); ABS Neutrophils 5.1 10^3/uL (1.5-7.6); ABS Nucleated RBC 0.01 10^3/ul; Eosinophil % 4.1 %; Hemoglobin 9.1 g/dL (13.2-16.3); Mean Corpuscular Hemoglobin 22.1 pg (27-33); Mean Corpuscular Hgb Conc 31.2 g/dL (31-36); Mean Corpuscular Volume 70.9 fL (80-97); Mean Platelet Volume 8.5 fL (7.5-11.2); Nucleated Red Blood Cells % 0.1 /100 WBC (0.0-0.4); Platelet Count 703 10^3/uL (150-450); Red Blood Count 4.09 10^6/uL (4.06-5.63); Red Cell Distribution Width 21.2 % (12-17); White Blood Count 9.9 10^3/uL (3.6-10.2)
[2023-01-08 06:50] LABS: C Reactive Protein 24.8 mg/L (<8.01); Calcium 9.3 mg/dL (8.6-10.3); Creatinine, Serum 0.68 mg/dL (0.67-1.17); Potassium 4.2 mmol/L (3.5-5.0); eGFR CKD-EPI 125.1 (>60)
[2023-01-08] MEDS ORDERED: Morphine ORAL.SOLN 10 mg 2 mg/ml UDC 5 ml (10 mg) PO PRN (08:13)
[2023-01-08] MEDS: Morphine ORAL.SOLN 10 mg 2 mg/ml UDC 5 ml (10 mg) PO SCH ×4 (09:44→22:00)
[2023-01-08] MEDS: DULoxetine DR 30 mg CAP PO SCH (09:45)
[2023-01-08] MEDS: Cholecalciferol (VIT D3) 1,000 unit TAB PO SCH (09:47)
[2023-01-08] MEDS: Nicotine PATCH 21 MG/24 HR PATCH TRANSDERM SCH (09:51)
[2023-01-08] MEDS: Polyethylene Glycol 3350 17 GM PACKET PO SCH (09:51)
[2023-01-08] MEDS: DAPTOmycin SDV 750 MG in NS 0.9% 50 ML 50 ML IVPB SCH (11:07)
[2023-01-08 21:25] LABS: Erythrocyte Sed Rate 28 mm/Hr (0-14)
[2023-01-08] MEDS: Senna TAB 8.6 mg TAB PO SCH (23:09)
[2023-01-08] MEDS ORDERED: Naloxone Nasal Spray 4 MG/0.1 ML NASAL.SPR INTRANASAL PRN (23:16)
[2023-01-09] MEDS: Morphine ORAL.SOLN 10 mg 2 mg/ml UDC 5 ml (10 mg) PO SCH ×6 (02:12→22:10)
[2023-01-09] MEDS: Nicotine GUM 4MG FRUIT FLAVOR PO PRN ×7 (02:16→22:11)
[2023-01-09] MEDS: Nicotine PATCH 21 MG/24 HR PATCH TRANSDERM SCH (08:58)
[2023-01-09] MEDS: Polyethylene Glycol 3350 17 GM PACKET PO SCH (08:59)
[2023-01-09] MEDS: Cholecalciferol (VIT D3) 1,000 unit TAB PO SCH (09:00)
[2023-01-09] MEDS: DULoxetine DR 30 mg CAP PO SCH (09:01)
[2023-01-09] MEDS: DAPTOmycin SDV 750 MG in NS 0.9% 50 ML 50 ML IVPB SCH (09:44)
[2023-01-09] MEDS: Senna TAB 8.6 mg TAB PO SCH (22:11)
[2023-01-10] MEDS: Morphine ORAL.SOLN 10 mg 2 mg/ml UDC 5 ml (10 mg) PO SCH ×6 (02:17→22:21)
[2023-01-10] MEDS: Nicotine GUM 4MG FRUIT FLAVOR PO PRN ×8 (02:18→22:21)
[2023-01-10 07:05] LABS: ABS Basophils 0.1 10^3/uL (0.0-0.1); ABS Eosinophils 0.4 10^3/uL (0.0-0.5); ABS Lymphocytes 3.1 10^3/uL (1.0-4.8); ABS Monocytes 1.6 10^3/uL (0.0-1.1); ABS Neutrophils 6.1 10^3/uL (1.5-7.6); ABS Nucleated RBC 0.01 10^3/ul; C Reactive Protein 24.39 mg/L (<8.01); Calcium 9.8 mg/dL (8.6-10.3); Creatinine, Serum 0.67 mg/dL (0.67-1.17); Eosinophil % 3.7 %; Hematocrit 30.7 % (38-53); Hemoglobin 9.3 g/dL (13.2-16.3); Mean Corpuscular Hemoglobin 21.6 pg (27-33); Mean Corpuscular Hgb Conc 30.1 g/dL (31-36); Mean Corpuscular Volume 71.6 fL (80-97); Mean Platelet Volume 8.5 fL (7.5-11.2); Nucleated Red Blood Cells % 0.1 /100 WBC (0.0-0.4); Platelet Count 785 10^3/uL (150-450); Potassium 4.3 mmol/L (3.5-5.0); Red Blood Count 4.28 10^6/uL (4.06-5.63); Red Cell Distribution Width 21.1 % (12-17); White Blood Count 11.4 10^3/uL (3.6-10.2); eGFR CKD-EPI 125.6 (>60)
[2023-01-10] MEDS: Cholecalciferol (VIT D3) 1,000 unit TAB PO SCH (09:27)
[2023-01-10] MEDS: DULoxetine DR 30 mg CAP PO SCH (09:27)
[2023-01-10] MEDS: Nicotine PATCH 21 MG/24 HR PATCH TRANSDERM SCH (09:28)
[2023-01-10] MEDS: Polyethylene Glycol 3350 17 GM PACKET PO SCH (09:28)
[2023-01-10] MEDS ORDERED: Morphine ORAL.SOLN 10 mg 2 mg/ml UDC 5 ml (10 mg) PO PRN (09:42)
[2023-01-10] MEDS: DAPTOmycin SDV 750 MG in NS 0.9% 50 ML 50 ML IVPB SCH (14:41)
[2023-01-10] MEDS: Senna TAB 8.6 mg TAB PO SCH (21:36)
[2023-01-11] MEDS: Morphine ORAL.SOLN 10 mg 2 mg/ml UDC 5 ml (10 mg) PO SCH ×6 (03:30→22:37)
[2023-01-11] MEDS: Nicotine GUM 4MG FRUIT FLAVOR PO PRN ×6 (03:31→21:32)
[2023-01-11] MEDS: Cholecalciferol (VIT D3) 1,000 unit TAB PO SCH (08:33)
[2023-01-11] MEDS: DULoxetine DR 30 mg CAP PO SCH (08:33)
[2023-01-11] MEDS: Polyethylene Glycol 3350 17 GM PACKET PO SCH (08:34)
[2023-01-11] MEDS: Nicotine PATCH 21 MG/24 HR PATCH TRANSDERM SCH (08:34)
[2023-01-11] MEDS: DAPTOmycin SDV 750 MG in NS 0.9% 50 ML 50 ML IVPB SCH (11:29)
[2023-01-11] MEDS: Senna TAB 8.6 mg TAB PO SCH (21:34)
[2023-01-12] MEDS: Morphine ORAL.SOLN 10 mg 2 mg/ml UDC 5 ml (10 mg) PO SCH ×6 (02:17→22:30)
[2023-01-12] MEDS: Nicotine GUM 4MG FRUIT FLAVOR PO PRN ×6 (02:18→19:50)
[2023-01-12] MEDS: Cholecalciferol (VIT D3) 1,000 unit TAB PO SCH (09:07)
[2023-01-12] MEDS: DULoxetine DR 30 mg CAP PO SCH (09:08)
[2023-01-12] MEDS ORDERED: Morphine ORAL.SOLN 10 mg 2 mg/ml UDC 5 ml (10 mg) PO PRN (12:05)
[2023-01-12] MEDS: DAPTOmycin SDV 750 MG in NS 0.9% 50 ML 50 ML IVPB SCH (12:07)
[2023-01-12] MEDS: Senna TAB 8.6 mg TAB PO SCH (19:44)
[2023-01-13] MEDS: Morphine ORAL.SOLN 10 mg 2 mg/ml UDC 5 ml (10 mg) PO SCH ×2 (02:52→08:31)
[2023-01-13] MEDS: Nicotine GUM 4MG FRUIT FLAVOR PO PRN ×6 (02:53→19:40)
[2023-01-13] MEDS: Cholecalciferol (VIT D3) 1,000 unit TAB PO SCH (08:33)
[2023-01-13] MEDS: DULoxetine DR 30 mg CAP PO SCH (08:33)
[2023-01-13] MEDS: DAPTOmycin SDV 750 MG in NS 0.9% 50 ML 50 ML IVPB SCH (11:16)
[2023-01-13] MEDS: Morphine ORAL.SOLN 10 mg 2 mg/ml UDC 5 ml (10 mg) PO PRN ×2 (14:58→21:07)
[2023-01-13] MEDS: Senna TAB 8.6 mg TAB PO SCH (21:07)
[2023-01-13] MEDS ORDERED: Morphine ORAL.SOLN 10 mg 2 mg/ml UDC 5 ml (10 mg) PO PRN (22:09)
[2023-01-14] MEDS: Nicotine GUM 4MG FRUIT FLAVOR PO PRN ×7 (03:29→20:18)
[2023-01-14 08:42] LABS: Hematocrit 29.8 % (38-53); Hemoglobin 9.1 g/dL (13.2-16.3); Mean Corpuscular Hemoglobin 21.6 pg (27-33); Mean Corpuscular Hgb Conc 30.6 g/dL (31-36); Mean Corpuscular Volume 70.6 fL (80-97); Mean Platelet Volume 8.2 fL (7.5-11.2); Platelet Count 779 10^3/uL (150-450); Red Blood Count 4.22 10^6/uL (4.06-5.63); Red Cell Distribution Width 21.3 % (12-17); White Blood Count 10.3 10^3/uL (3.6-10.2)
[2023-01-14] MEDS: DULoxetine DR 30 mg CAP PO SCH (09:31)
[2023-01-14] MEDS: Cholecalciferol (VIT D3) 1,000 unit TAB PO SCH (09:32)
[2023-01-14] MEDS: Morphine ORAL.SOLN 10 mg 2 mg/ml UDC 5 ml (10 mg) PO SCH ×2 (11:59→20:14)
[2023-01-14] MEDS: DAPTOmycin SDV 750 MG in NS 0.9% 50 ML 50 ML IVPB SCH (12:01)
[2023-01-14] MEDS: Senna TAB 8.6 mg TAB PO SCH (20:15)
[2023-01-15] MEDS: Nicotine GUM 4MG FRUIT FLAVOR PO PRN ×8 (02:33→23:37)
[2023-01-15] MEDS: Morphine ORAL.SOLN 10 mg 2 mg/ml UDC 5 ml (10 mg) PO SCH ×3 (03:33→20:00)
[2023-01-15] MEDS: DULoxetine DR 30 mg CAP PO SCH (08:04)
[2023-01-15] MEDS: Cholecalciferol (VIT D3) 1,000 unit TAB PO SCH (08:04)
[2023-01-15] MEDS: Senna TAB 8.6 mg TAB PO SCH (20:04)
[2023-01-16] MEDS: Morphine ORAL.SOLN 10 mg 2 mg/ml UDC 5 ml (10 mg) PO SCH (03:50)
[2023-01-16] MEDS: Nicotine GUM 4MG FRUIT FLAVOR PO PRN ×6 (03:51→21:26)
[2023-01-16] MEDS: Cholecalciferol (VIT D3) 1,000 unit TAB PO SCH (09:09)
[2023-01-16] MEDS: DULoxetine DR 30 mg CAP PO SCH (09:10)
[2023-01-16] MEDS: Senna TAB 8.6 mg TAB PO SCH (21:25)
[2023-01-17] MEDS: Nicotine GUM 4MG FRUIT FLAVOR PO PRN ×2 (03:22→08:00)
[2023-01-17 05:53] VITALS: BP 122/52
[2023-01-17 06:12] LABS: ABS Basophils 0.1 10^3/uL (0.0-0.1); ABS Eosinophils 0.7 10^3/uL (0.0-0.5); ABS Lymphocytes 3.3 10^3/uL (1.0-4.8); ABS Monocytes 1.6 10^3/uL (0.0-1.1); ABS Neutrophils 4.5 10^3/uL (1.5-7.6); ABS Nucleated RBC 0.02 10^3/ul; Hematocrit 28.6 % (38-53); Lymphocyte % 32.3 %; Mean Corpuscular Hemoglobin 21.7 pg (27-33); Mean Corpuscular Hgb Conc 31.6 g/dL (31-36); Mean Corpuscular Volume 68.4 fL (80-97); Mean Platelet Volume 8.6 fL (7.5-11.2); Nucleated Red Blood Cells % 0.2 /100 WBC (0.0-0.4); Platelet Count 760 10^3/uL (150-450); Red Blood Count 4.18 10^6/uL (4.06-5.63); Red Cell Distribution Width 21.2 % (12-17); White Blood Count 10.2 10^3/uL (3.6-10.2)
[2023-01-17 06:24] LABS: Albumin 3.7 g/dL (3.2-5.2); Albumin/Globulin Ratio 0.9 (1-3); C Reactive Protein 24.2 mg/L (<8.01); Calcium 9.6 mg/dL (8.6-10.3); Creatinine, Serum 0.55 mg/dL (0.67-1.17); Globulin 4.2 g/dL (2-4); Magnesium 1.9 mg/dL (1.9-2.7); Potassium 4.2 mmol/L (3.5-5.0); Total Bilirubin 0.3 mg/dL (0.2-1.0); Total Protein 7.9 g/dL (6.4-8.9); eGFR CKD-EPI 133.4 (>60)
[2023-01-17] MEDS: Cholecalciferol (VIT D3) 1,000 unit TAB PO SCH (08:54)
[2023-01-17] MEDS: DULoxetine DR 30 mg CAP PO SCH (08:55)
== END 2023-01-17 09:33 | disposition home or self-care (01) | DRG 309 ==
LOC: MED → SUATTDRO 13:37 → SSU 12-04 20:24 → MEDTELE 12-08 21:33
PROVIDERS: ADMIT Internal Medicine; ATTEND Hospitalist